=== PATIENT | female | born 1945 | race Caucasian/White ===

== ENCOUNTER 2020-01-18 11:05 | Emergency (ER) | payer MEDICARE, SELFPAY ==
--- NOTE | ~2020-01-18 | XR_ITS ---
EXAMINATION: XR chest 1V portable DATE: 01/18/2020 12:11 INDICATION: Chest pain TECHNIQUE: frontal view of the chest was obtained. COMPARISON: Chest radiograph dated 11/28/[address] dated 10/12/2017 FINDINGS: No interval change in a chronic right upper lobe hamartoma which demonstrates macroscopic fat attenua tion on CT. No new airspace opacities, pulmonary edema, pleural effusion or pneumothorax. The cardiom ediastinal silhouette is normal. Bilateral rotator cuff arthropathy with couple large loose osteochon dral bodies at the left axillary recess. IMPRESSION: 1. No acute cardiopulmonary disease. 2. 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 Reviewed, dictated and finalized at location A.
[2020-01-18 11:10] VITALS: BP 175/94; PULSE 94; RESP 20; TEMP 36.3; O2SAT 96
--- NOTE | 2020-01-18 11:18 | ECG_ITS ---
Measurements Intervals [place] Rate: 94 P: MI: 0 QRS: -28 QRSD: 149 T: 76 QT: 372 QTc: 465 Interpretive Statements SINUS RHYTHM LEFT BUNDLE BRANCH BLOCK ABNORMAL ECG Electronically Signed On 01-18-2020 11:27:00 CDT by Stephane Herrera D.O.
[2020-01-18 11:31] VITALS: PULSE 90
[2020-01-18 11:38] LABS: Basophils Percent Auto 0.6 % (0.2-1.2); Eosinophils Absolute Auto 0.3 K/mm3 (0-0.3); Eosinophils Percent Auto 3.6 % (0-4.4); Hematocrit 43.6 % (37.0-47.0); Hemoglobin 14.2 g/dL (12.0-15.0); Immature Granulocyte Absolute 0.03 K/mm3 (0.00-0.031); Immature Granulocyte Percent A 0.4 % (0-0.5); Lymphocytes Absolute Auto 1.44 K/mm3 (0.9-3.2); Mean Corpuscular HGB Conc 32.6 g/dl (32-36); Mean Corpuscular Hemoglobin 28.7 pg (26-34); Mean Corpuscular Volume 88.3 fl (80-100); Mean Platelet Volume 9.9 fl (7.4-10.4); Monocytes Absolute Auto 0.6 K/mm3 (0.1-0.6); Monocytes Percent Auto 8.7 % (2.6-8.5); Neutrophils Absolute Auto 4.8 K/mm3 (1.3-6.7); Neutrophils Percent Auto 66.7 % (45.5-73.1); Platelet Count Result 281 k/mm3 (150-375); Red Blood Count 4.94 M/mm3 (4.2-5.4); Red Cell Distribution Width 13.2 % (11.5-14.5); White Blood Count 7.2 K/mm3 (4.5-10.0)
--- NOTE | 2020-01-18 11:41 | ED.GENADULT ---
HPI - General Adult General Chief complaint: Chest Pain Stated complaint: chest pain and SOB Time Seen by Provider: 01/18/20 11:29 Source: patient Mode of arrival: ambulatory Limitations: no limitations History of Present Illness HPI narrative: Patient is a 74-year-old female who presents to emergency department for evaluation of midsternal chest heaviness for the last 2 days noting that she has had some congestion rhinorrhea ear discomfort attributed to allergies denies sick contacts. Patient denies vomiting diarrhea similar occurrence in the past aside from seasonal allergies. Patient took a baby aspirin this morning on arrival is resting comfortably in the room in no distress. Patient notes that heaviness worsens with deep breathing. Patient also notes associated dyspnea Related Data Home Medications Medication Instructions Recorded Confirmed albuterol sulfate [ProAir HFA] 1 puff INHALATION QID PRN 01/18/20 aspirin [Aspirin Childrens] 81 mg PO DAILY 01/18/20 bimatoprost [Lumigan] 1 drp LEFTEYE HS 01/18/20 budesonide-formoterol [Symbicort] 2 inh INHALATION BID 01/18/20 cetirizine [Zyrtec] 10 mg PO DAILY 01/18/20 donepezil mg 01/18/20 levothyroxine [Synthroid] 112 mcg PO DAILY 01/18/20 telmisartan-amlodipine tablet 01/18/20 Allergies Allergy/AdvReac Type Severity Reaction Status Date / Time clindamycin Allergy Unknown Hives Verified 01/18/20 11:22 denosumab Allergy Unknown loose Verified 01/18/20 11:22 teeth after one treatment mold Allergy Unknown Wheezing Verified 01/18/20 11:22 omeprazole Allergy Unknown abdominal Verified 01/18/20 11:22 cramping,diarrhea,bloating raloxifene Allergy Unknown contraindicated: Verified 01/18/20 11:22 DVT on ocp No Known Allergies Allergy Verified 01/18/20 11:22 Review of Systems Review of Systems: All systems reviewed & are unremarkable except as noted in HPI and below PMFSH Past Medical History Medical History (Updated 01/18/20 @ 15:43 by Zack Maurice PA-C) Hypertension Family History Family History (Updated 08/07/18 @ 13:46 by DOCTOR UNKNOWN) Father Diabetes mellitus Family history of congestive heart failure, Onset Age: 85 Family history of kidney disease Sibling Hypertension Family history of malignant neoplasm of breast, Onset Age: 73 Family history of malignant neoplasm of breast in first degree relative Mother Family history of Alzheimer's disease Other Asthma Family history of cardiovascular disease Family history of mental disorder Social History Social History Smoking status: Never smoker Alcohol intake: current Gender identity (if verbalized by the patient): Female Exam Narrative: Exam Narrative: GENERAL: Well-appearing, well-nourished, and in no acute distress. HEAD: Normocephalic, atraumatic. EYES: PERRLA and EOMI. ENT: Nares clear, no rhinorrhea or epistaxis. Mucous membranes moist. NECK: Supple. No adenopathy or masses. CHEST: Clear to auscultation. No respiratory distress. No wheezes rales or rhonchi HEART: Regular rate and rhythm. No murmur heard. Normal peripheral pulses. ABDOMEN: Soft, nontender, nondistended EXTREMITIES: Normal range of motion. No edema. SKIN: Warm, dry, no rash. NEURO: No focal deficits. Alert and oriented x3. PSYCH: Normal mood and affect. Course Course Emergency Course: Patient in the room at this time aware of case findings treatment plan and diagnosis agreeing to follow-up up with primary care for further evaluation resting comfortably in the room in no distress is aware of discussions with cardiology and primary care Consultations Consultation #1: Discussed case with primary care and cardiology Cardiology reviewed the case and notes that the patient can follow safely on an outpatient basis with primary care for further evaluation and referral if necessary Primary CARE awar
[2020-01-18 11:49] LABS: INR 0.9; Prothrombin Time 11.3 Seconds (11.1-14.7)
[2020-01-18 11:50] LABS: Partial Thromboplastin Time 27.5 SECONDS (22.3-36.8)
[2020-01-18 11:53] LABS: D Dimer 0.47 ug/mL (<0.48)
[2020-01-18] MEDS: ASPIRIN 81 MG CHEWABLE TABLET 324 MG PO (12:05)
[2020-01-18 12:06] VITALS: BP 157/91; PULSE 98; RESP 20; O2SAT 98
[2020-01-18 12:08] LABS: Blood Urea Nitrogen 13 mg/dL (7-17); Calcium 9.2 mg/dL (8.4-10.2); Carbon Dioxide 25 mmol/L (22-30); Chloride 101 mmol/L (98-107); Estimated CRCL calculation 49 ml/min; Estimated Glomerular Filt Rate > 60; Glucose 102 mg/dL (65-105); Potassium 4.1 mmol/L (3.4-5.0); Sodium 136 mmol/L (137-145)
[2020-01-18 12:20] LABS: Troponin I < 0.012 ng/mL (0.000-0.034)
[2020-01-18 12:21] LABS: NT Pro B Type Natriuretic Pept 280 PG/ML (5-100)
[2020-01-18 12:44] LABS: Alanine Aminotransferase 15 U/L (4-35); Albumin Level 4.7 g/dL (3.5-5.1); Alkaline Phosphatase 116 U/L (38-126); Aspartate Amino Transferase 25 U/L (14-36); Bilirubin,Total 0.5 mg/dL (0.2-1.3); Lipase 117 U/L (23-300)
[2020-01-18 13:42] VITALS: BP 147/78; PULSE 85; RESP 20; TEMP 36.7; O2SAT 97
[2020-01-18 14:59] LABS: Troponin I < 0.012 ng/mL (0.000-0.034)
[2020-01-18 15:55] VITALS: BP 124/80; PULSE 80; RESP 20; TEMP 36.7; O2SAT 99
== END 2020-01-18 15:56 | disposition home or self-care (01) ==
PROVIDERS: Emergency Medicine Emergency Medical Services; Emergency Provider Family Medicine; PCP Family Medicine
DX: R07.9 Chest pain, unspecified (principal); I10 Essential (primary) hypertension; Z79.82 Long term (current) use of aspirin; I44.7 Left bundle-branch block, unspecified; R06.00 Dyspnea, unspecified
CPT/HCPCS: 36415; 71045; 80053; 83690; 83880; 84484; 85025; 85380; 85610; 85730; 93005; 96365; 99284; A9270; J0131

== ENCOUNTER 2020-02-29 00:19 | Outpatient (CLI) | payer MEDICARE, SELFPAY ==
[2020-02-29 15:54] LABS: SARS-CoV-2 RNA PCR Negative
== END 2020-02-29 00:20 | disposition home or self-care (01) ==
LOC: ANHCOVIDDT 00:20
PROVIDERS: PCP Family Medicine; Visit Provider Specialist
DX: Z01.818 Encounter for other preprocedural examination (principal); Z11.59 Encounter for screening for other viral diseases
CPT/HCPCS: 87635; C9803; U0003

== ENCOUNTER 2020-03-03 05:17 | Day surgery (SDC) | payer MEDICARE, SELFPAY ==
[2020-02-29 13:27] VITALS: BMI 28.0
[2020-03-03] VITALS (15 sets, daily range): BP systolic 121–163; BP diastolic 62–91; PULSE 62–85; RESP 14–18; TEMP 36.8–37; O2SAT 92–97; BMI 31.1
[2020-03-03 09:08] LABS: Basophils Absolute Auto 0.1 K/mm3 (0.0-0.1); Basophils Percent Auto 0.7 % (0.2-1.2); Eosinophils Absolute Auto 0.3 K/mm3 (0-0.3); Eosinophils Percent Auto 4.7 % (0-4.4); Hematocrit 42.8 % (37.0-47.0); Immature Granulocyte Absolute 0.04 K/mm3 (0.00-0.031); Immature Granulocyte Percent A 0.6 % (0-0.5); Lymphocytes Absolute Auto 1.35 K/mm3 (0.9-3.2); Mean Corpuscular HGB Conc 32.7 g/dl (32-36); Mean Corpuscular Hemoglobin 28.9 pg (26-34); Mean Corpuscular Volume 88.2 fl (80-100); Monocytes Absolute Auto 0.7 K/mm3 (0.1-0.6); Monocytes Percent Auto 10.1 % (2.6-8.5); Neutrophils Absolute Auto 4.3 K/mm3 (1.3-6.7); Neutrophils Percent Auto 63.9 % (45.5-73.1); Platelet Count Result 295 k/mm3 (150-375); Red Blood Count 4.85 M/mm3 (4.2-5.4); Red Cell Distribution Width 13.3 % (11.5-14.5); White Blood Count 6.7 K/mm3 (4.5-10.0)
[2020-03-03 09:19] LABS: Blood Urea Nitrogen 17 mg/dL (7-17); Calcium 9.4 mg/dL (8.4-10.2); Carbon Dioxide 29 mmol/L (22-30); Chloride 104 mmol/L (98-107); Estimated CRCL calculation 50 ml/min; Estimated Glomerular Filt Rate > 60; Glucose 94 mg/dL (65-105); Potassium 4.2 mmol/L (3.4-5.0); Prothrombin Time 12.4 Seconds (11.1-14.7); Sodium 138 mmol/L (137-145)
--- NOTE | 2020-03-03 10:25 | WPDMODSED ---
Moderate Sedation Note-Pt Data Patient Data Diagnosis: Atypical chest pain left bundle-branch block abnormal nuclear stress test Present Complaint: 74-year-old patient with no previous documented history of coronary disease who has been having symptoms of atypical sounding chest pain. ECG demonstrates a left bundle branch block. Patient has pre-existing hypertension. Nuclear stress test demonstrated an anteroseptal defect that is fixed Procedure to be performed/Plan: left heart catheterization Allergies Allergy/AdvReac Type Severity Reaction Status Date / Time clindamycin Allergy Unknown Hives Verified 02/29/20 14:09 denosumab Allergy Unknown loose Verified 02/29/20 14:09 teeth after one treatment mold Allergy Unknown Wheezing Verified 02/29/20 14:09 omeprazole Allergy Unknown abdominal Verified 02/29/20 14:09 cramping,diarrhea,bloating raloxifene Allergy Unknown contraindicated: Verified 02/29/20 14:09 DVT on ocp Home Medications Medication Instructions Recorded Confirmed Type telmisartan 40 mg-amlodipine 5 mg 1 tablet PO DAILY #90 tablet 10/30/19 02/29/20 Rx tablet aspirin [Aspirin Childrens] 81 mg PO DAILY 01/18/20 03/03/20 History bimatoprost [Lumigan] 1 drp LEFTEYE HS 01/18/20 02/29/20 History budesonide-formoterol [Symbicort] 2 inh INHALATION BID 01/18/20 02/29/20 History cetirizine [Zyrtec] 10 mg PO DAILY 01/18/20 02/29/20 History donepezil [Aricept] 10 mg PO HS 01/18/20 02/29/20 History levothyroxine [Synthroid] 112 mcg PO DAILY 01/18/20 02/29/20 History albuterol sulfate 90 mcg/actuation 2 puff INHALATION QID PRN #18 gm 02/21/20 02/29/20 Rx aerosol inhaler Allergy (diphenhydramine) 25 mg BYMOUTH HS PRN 02/29/20 02/29/20 History calcium carbonate-vitamin D3 1 tablet PO DAILY 02/29/20 02/29/20 History [Caltrate with Vitamin D3] cholecalciferol (vitamin D3) 50 mcg PO DAILY 02/29/20 02/29/20 History cyanocobalamin (vitamin B-12) 1,000 mcg PO DAILY 02/29/20 02/29/20 History fluticasone propionate [Flonase 2 spray INTRANASAL DAILY 02/29/20 02/29/20 History Allergy Relief] vitamin E 400 unit PO DAILY 02/29/20 02/29/20 History Current Medications: Active Medications Sodium Chloride (Normal Saline Iv) 500 mls @ 100 mls/hr IV CONT .Q5H TAMARA Sedation/Anesthesia: No previous sedation/anesthesia problems (including family history). [facility] Past Medical History Medical History (Updated 01/29/20 @ 15:36 by Zarina Gupta MD) Hypertension Lung nodule COMPARISON: Chest radiograph dated 11/28/[address] dated 10/12/2017 IMPRESSION: 1. No acute cardiopulmonary disease. 2. 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 Family History Family History (Updated 08/07/18 @ 13:46 by DOCTOR UNKNOWN) Father Diabetes mellitus Family history of congestive heart failure, Onset Age: 85 Family history of kidney disease Sibling Hypertension Family history of malignant neoplasm of breast, Onset Age: 73 Family history of malignant neoplasm of breast in first degree relative Mother Family history of Alzheimer's disease Other Asthma Family history of cardiovascular disease Family history of mental disorder Social History Social History Smoking status: Never smoker Alcohol intake: current Gender identity (if verbalized by the patient): Female Mod Sed Physical Exam Physical Exam Pre Procedural Exam: Normal: Appearance, Nose, Neck, Throat, Airway, Lungs, Heart Size, Heart Rate, Heart Rhythm, Neuro Exam and Extremities Hours since solid foods: 12 Hours since liquid intake: 12 Internal Medicine - PN: Obj Da Vital Signs Vital Signs: Vital Signs - 24 hr 03/03/20 09:00 Temperature 36.8 C Pulse Rate 78 Respiratory Rate 16 Blood Pressure 163/83 H Pulse Oximetry 96 Intake/Output Intake/Output: Intake & Output 02/29/20 03/01/20 03/02/20 03/03/20 23:59 2
--- NOTE | 2020-03-03 10:50 | WPDCARDPROC ---
Cardiac Cath Procedure Note Date of procedure:: 03/03/20 Performing physician:: Mal Riggs MD Indication:: atypical chest pain, abnormal nuclear stress test, left bundle-branch block Brief clinical history:: this is a 74-year-old woman who was reporting as syndrome of chest pain and MANZANO that is atypical of angina. She has been found to have a left bundle branch block and a nuclear stress test was done demonstrating a fixed anteroseptal / anteroapical defect. For further evaluation of this and angiogram was been recommended Procedure Procedure performed:: left heart catheterization with left ventriculography and coronary angiography. Sedation/Medication given:: Fentanyl 50 mg Versed 2 mg case start time 10:37 a.m. case end time 10:48 a.m. sedation provided by Jacob Zimmerman RN , trained observer Access site:: right femoral Estimated blood loss:: 15-20 cc Procedure note:: patient was brought to the cardiac catheterization lab in the postabsorptive state the right was prepared usual fashion anesthesia was provided with 1% lidocaine infiltrated locally. Using the modified Seldinger technique a 5 Bengali vascular sheath was placed into the femoral artery after this left heart catheterization was performed. A 5 Bengali angled pigtail catheter was used to document left-sided hemodynamics and to injected LV g in the are AO projection. Following this I used standard 5 Bengali FL4 and JR4 catheters to inject the left and right coronary arteries in multiple projections. This any angiograms were then reviewed and the case was terminated. An angiogram was done of the femoral artery through the sheath after which I determined to remove the sheath with direct manual compression. He left the clinical lab assistant with no evidence of a groin hematoma there were no other apparent procedural complications. Findings:: Hemodynamics: Central aortic pressure is 153/72 left ventricle 153/0 end-diastolic pressure 11 there is no systolic gradient upon pullback across the aortic valve. The left ventricle is normal in size all segments contract appropriately the septum moves in a paradoxical fashion the ejection fraction is visually estimated to be 55% the left main coronary artery is widely patent the LAD is a large caliber vessel extending down to around the apex. The LAD as well as its diagonal and septal branches are angiographically normal. The circumflex is a large caliber artery appears to be codominant. The circumflex, its marginal branches and posterior branches are angiographically normal. Right coronary is a medium caliber vessel which is codominant terminating in RPDA. The right coronary is rather tortuous but angiographically free of disease Conclusion:: codominant circulation with no evidence of coronary artery disease preserved left ventricular systolic function current symptoms are not related to ischemia based on these findings Mal Riggs MD [facility]
== END 2020-03-03 18:10 | disposition home or self-care (01) ==
PROVIDERS: PCP Family Medicine; Visit Provider Specialist
PROC: 4A023N7 Measurement of Cardiac Sampling and Pressure, Left Heart, Percutaneous Approach (ICD-10-PCS; CPT 93452; principal; 2020-03-03 10:00)
DX: R94.39 Abnormal result of other cardiovascular function study (principal); R07.89 Other chest pain; I44.7 Left bundle-branch block, unspecified; I10 Essential (primary) hypertension; R91.1 Solitary pulmonary nodule; J44.9 Chronic obstructive pulmonary disease, unspecified; E78.5 Hyperlipidemia, unspecified; I73.9 Peripheral vascular disease, unspecified; E07.9 Disorder of thyroid, unspecified; Z79.82 Long term (current) use of aspirin
CPT/HCPCS: 36415; 80048; 85025; 85610; 93458; C1887; C1894; J1644; J2250; J3010; J7040

== ENCOUNTER 2020-05-28 09:46 | Emergency (ER) | payer MEDICARE, SELFPAY ==
[2020-05-28] VITALS (36 sets, daily range): BP systolic 133–184; BP diastolic 63–109; PULSE 57–85; RESP 13–24; TEMP 36.8; O2SAT 91–99
--- NOTE | ~2020-05-28 | CT_ITS ---
EXAMINATION: CT brain wo con DATE: 05/28/2020 10:22 INDICATION: Numbness. TECHNIQUE: Computed tomography (CT) of the head was performed without intravenous contrast. The mA wa s adjusted according to patient size. Iterative reconstruction technique was employed. The dose-lengt h product was 605.33 mGy-cm. COMPARISON: PET/CT 08/04/2016 FINDINGS: There are scattered areas of low attenuation in the cerebral white matter. There is no intr acranial hemorrhage, acute infarction, or abnormal intracranial mass lesion. The ventricles are maurizio l in size. There are likely changes of ocular lens replacement surgeries. There is mucosal thickening in the paranasal sinuses with thickening and sclerosis of the sinus larry, consistent with chronic s inusitis. There is a trace right mastoid effusion. IMPRESSION: 1. Moderate nonspecific cerebral white matter disease, which likely represents chronic small vessel i schemic disease. 2. Chronic sinusitis. Reviewed, dictated and finalized at location A. IMPRESSION: 1. Moderate nonspecific cerebral white matter disease, which likely represents chronic small vessel ischemic disease. 2. Chronic sinusitis.
--- NOTE | ~2020-05-28 | XR_ITS ---
EXAMINATION: XR chest 2V DATE: 05/28/2020 10:24 INDICATION: Shortness of breath. TECHNIQUE: Frontal and lateral views of the chest were obtained. COMPARISON: Chest single view 01/18/2020, chest CT 10/12/2017, PET/CT 08/04/16 FINDINGS: There is mild atelectasis at the lung bases. There is a chronic nodule in right upper lobe, consistent with a hematoma. No pleural effusion or pneumothorax. The heart size is normal. There is mild chronic anterior wedging of a midthoracic vertebral body. IMPRESSION: 1. Mild atelectasis at the lung bases. 2. Chronic nodule in right upper lobe, consistent with a hamartoma. Reviewed, dictated and finalized at location A.
--- NOTE | 2020-05-28 09:55 | ECG_ITS ---
Measurements Intervals [place] Rate: 68 P: 46 OR: 176 QRS: -16 QRSD: 142 T: 76 QT: 412 QTc: 439 Interpretive Statements SINUS RHYTHM LEFT BUNDLE BRANCH BLOCK ABNORMAL ECG Electronically Signed On 05-28-2020 10:03:48 CDT by Stephane Herrera D.O.
--- NOTE | 2020-05-28 10:04 | ED.GENADULT ---
HPI - General Adult General Chief complaint: Arrhythmia/Palpitations Stated complaint: Numbness at night x2 wks Time Seen by Provider: 05/28/20 09:51 Source: RN notes reviewed History of Present Illness HPI narrative: Patient presents emergency department from home for multiple complaints. Patient states that for the past 2 weeks she will wake up at night with intermittent diaphoresis numbness and tingling in different extremities chest pain and shortness of breath. All the symptoms do not occur at the same time but have been different times and the numbness and tingling is not always in the same extremities but can be bilateral or no single extremity. She states that there is no symptoms during the day she denies any fevers or chills abdominal pain nausea vomiting or any other symptoms. Currently her only symptom is that she notes mild tingling in the bilateral upper extremities but denies any other symptoms at this time Related Data Home Medications Medication Instructions Recorded Confirmed Miguel Arnie domingo MILAN HS 01/18/20 05/07/20 Zyrtec 10 mg PO DAILY 01/18/20 05/07/20 budesonide-formoterol [Symbicort] 2 inh INHALATION BID 01/18/20 05/07/20 donepezil [Aricept] 10 mg PO HS 01/18/20 05/07/20 levothyroxine [Synthroid] 112 mcg PO DAILY 01/18/20 05/07/20 cholecalciferol (vitamin D3) 50 mcg PO DAILY 02/29/20 05/07/20 cyanocobalamin (vitamin B-12) 1,000 mcg PO DAILY 02/29/20 05/07/20 fluticasone propionate [Flonase 2 spray INTRANASAL DAILY 02/29/20 05/07/20 Allergy Relief] vitamin E 400 unit PO DAILY 02/29/20 05/07/20 carvedilol 3.125 mg tablet 3.125 mg PO BID tablet 05/07/20 05/07/20 aspirin [Adult Low Dose Aspirin] 81 mg PO DAILY 05/28/20 Allergies Allergy/AdvReac Type Severity Reaction Status Date / Time clindamycin Allergy Unknown Hives Verified 02/29/20 14:09 denosumab Allergy Unknown loose Verified 02/29/20 14:09 teeth after one treatment mold Allergy Unknown Wheezing Verified 02/29/20 14:09 omeprazole Allergy Unknown abdominal Verified 02/29/20 14:09 cramping,diarrhea,bloating raloxifene Allergy Unknown contraindicated: Verified 02/29/20 14:09 DVT on ocp Review of Systems Review of Systems: Narrative: Gen.: Denies fevers or chills Eyes: Denies eye pain or visual change ENT: Denies congestion Respiratory: Reports intermittent shortness of breath CV: Reports intermittent chest pain GI: Denies abdominal pain nausea, emesis or diarrhea Musculoskeletal: Denies back pain or muscle pain Neuro: See HPI Skin: Denies rash Except as documented, all other systems reviewed and negative [facility] Past Medical History Medical History Hypertension Lung nodule COMPARISON: Chest radiograph dated 11/28/[address] dated 10/12/2017 IMPRESSION: 1. No acute cardiopulmonary disease. 2. 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 Surgical History Surgical History (Updated 03/04/20 @ 10:19 by Zarina Gupta MD) Status post cardiac catheterization 6.8.20 codominant circulation with no evidence of coronary artery disease. preserved left ventricular systolic function Family History Family History (Updated 08/07/18 @ 13:46 by DOCTOR UNKNOWN) Father Diabetes mellitus Family history of congestive heart failure, Onset Age: 85 Family history of kidney disease Sibling Hypertension Family history of malignant neoplasm of breast, Onset Age: 73 Family history of malignant neoplasm of breast in first degree relative Mother Family history of Alzheimer's disease Other Asthma Family history of cardiovascular disease Family history of mental disorder Social History Social History Smoking status: Never smoker Alcohol intake: current Gender identity (if verbalized by the patient): Female Exam Narrative: Exam Narrative: APPEAR
[2020-05-28 10:29] LABS: Basophils Absolute Auto 0.1 K/mm3 (0.0-0.1); Basophils Percent Auto 0.8 % (0.2-1.2); Eosinophils Absolute Auto 0.3 K/mm3 (0-0.3); Eosinophils Percent Auto 5.3 % (0-4.4); Hematocrit 42.5 % (37.0-47.0); Hemoglobin 14.1 g/dL (12.0-15.0); Immature Granulocyte Absolute 0.03 K/mm3 (0.00-0.031); Immature Granulocyte Percent A 0.5 % (0-0.5); Lymphocytes Absolute Auto 1.49 K/mm3 (0.9-3.2); Lymphocytes Percent Auto 24.1 % (18.3-44.2); Mean Corpuscular HGB Conc 33.2 g/dl (32-36); Mean Corpuscular Volume 87.3 fl (80-100); Mean Platelet Volume 10.1 fl (7.4-10.4); Monocytes Absolute Auto 0.6 K/mm3 (0.1-0.6); Monocytes Percent Auto 9.2 % (2.6-8.5); Neutrophils Absolute Auto 3.7 K/mm3 (1.3-6.7); Neutrophils Percent Auto 60.1 % (45.5-73.1); Platelet Count Result 298 k/mm3 (150-375); Red Blood Count 4.87 M/mm3 (4.2-5.4); Red Cell Distribution Width 13.1 % (11.5-14.5); White Blood Count 6.2 K/mm3 (4.5-10.0)
[2020-05-28 10:39] LABS: Partial Thromboplastin Time 28.9 SECONDS (22.3-36.8); Prothrombin Time 12.4 Seconds (11.1-14.7)
[2020-05-28 10:43] LABS: Alanine Aminotransferase 15 U/L (4-35); Albumin Level 4.4 g/dL (3.5-5.1); Alkaline Phosphatase 106 U/L (38-126); Anion Gap 8 mmol/L (8-16); Aspartate Amino Transferase 25 U/L (14-36); Bilirubin,Total 0.4 mg/dL (0.2-1.3); Blood Urea Nitrogen 13 mg/dL (7-17); Carbon Dioxide 27 mmol/L (22-30); Chloride 103 mmol/L (98-107); Estimated CRCL calculation 49 ml/min; Estimated Glomerular Filt Rate > 60; Glucose 87 mg/dL (65-105); Magnesium 2.1 mg/dL (1.6-2.3); Potassium 4.2 mmol/L (3.4-5.0); Sodium 138 mmol/L (137-145)
[2020-05-28 10:52] LABS: Troponin I < 0.012 ng/mL (0.000-0.034)
[2020-05-28 14:35] LABS: Troponin I < 0.012 ng/mL (0.000-0.034)
== END 2020-05-28 15:49 | disposition home or self-care (01) ==
PROVIDERS: Emergency Provider Emergency Medicine; PCP Family Medicine
DX: R20.2 Paresthesia of skin (principal); R07.9 Chest pain, unspecified; I10 Essential (primary) hypertension; Z79.82 Long term (current) use of aspirin; I44.7 Left bundle-branch block, unspecified
CPT/HCPCS: 36415; 70450; 71046; 80053; 83735; 84484; 85025; 85610; 85730; 93005; 99284

== ENCOUNTER 2020-06-06 00:16 | Outpatient (CLI) | payer MEDICARE, SELFPAY ==
[2020-06-07 13:40] LABS: SARS-CoV-2 RNA PCR Negative
== END 2020-06-06 00:17 | disposition home or self-care (01) ==
LOC: ANHCOVIDDT 00:16
PROVIDERS: PCP Family Medicine; Visit Provider Internal Medicine Gastroenterology
DX: Z01.812 Encounter for preprocedural laboratory examination (principal); Z20.828 Contact with and (suspected) exposure to other viral communicable diseases
CPT/HCPCS: 87635; C9803; U0003

== ENCOUNTER 2020-06-09 01:34 | Day surgery (SDC) | payer MEDICARE, SELFPAY ==
[2020-06-04 10:23] VITALS: BMI 27.3
--- NOTE | 2020-06-09 09:28 | WPDGICN ---
Assessment and Plan Assessment and plan (1) Atypical chest pain: Code(s): R07.89 - Other chest pain Status: Acute Assessment and Plan: Patient with very atypical symptoms at night that include some chest discomfort but also numbness tingling in her hands and fingers is uncertain if this represents acid reflux. She has improved upon being started on sucralfate period is uncertain if the this is incidental or not. Plan is for EGD to assess more thoroughly. Further recommendations will be given after endoscopy. (2) Malignant neoplasm of thyroid gland: Code(s): C73 - Malignant neoplasm of thyroid gland Status: Acute GI Consult Note Consult date/time: 06/09/20 09:28 HPI: Stephanie Holly is a 75 year old female seen in evaluation at the request of Dr Zarina Gupta.Patient complains of nocturnal episodes where she becomes short of breath her fingers become numb and tingling she has no bitter taste in her mouth. No regurgitation. She apparently was treated with sucralfate. She is uncertain if this has made any benefit. She states that in the doctor's office she had epigastric pain that is no longer present today. Patient denies any weight loss or bleeding. Previously she took Pepcid but now only Carafate. Review of Systems Review of Systems: All systems reviewed & are unremarkable except as noted in HPI and below PMFSH Past Medical History Medical History Hypertension Lung nodule COMPARISON: Chest radiograph dated 11/28/[address] dated 10/12/2017 IMPRESSION: 1. No acute cardiopulmonary disease. 2. 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 Surgical History Surgical History Status post cardiac catheterization 6.8.20 codominant circulation with no evidence of coronary artery disease. preserved left ventricular systolic function Family History Family History Father Diabetes mellitus Family history of congestive heart failure, Onset Age: 85 Family history of kidney disease Sibling Hypertension Family history of malignant neoplasm of breast, Onset Age: 73 Family history of malignant neoplasm of breast in first degree relative Mother Family history of Alzheimer's disease Other Asthma Family history of cardiovascular disease Family history of mental disorder Social History Social History Smoking status: Never smoker Alcohol intake: current Substance use: never Substance use type: does not use Living arrangements: alone Gender identity (if verbalized by the patient): Female Spiritual care concerns: No Meds Home Medications and Allergies Home Medications Medication Instructions Recorded Confirmed Type Lumigan 1 drp OPHTHALMIC (EYE) HS 01/18/20 06/09/20 History Zyrtec 10 mg PO DAILY 01/18/20 06/09/20 History budesonide-formoterol [Symbicort] 2 inh INHALATION BID 01/18/20 06/09/20 History donepezil [Aricept] 10 mg PO BID 01/18/20 06/09/20 History albuterol sulfate 90 mcg/actuation 2 puff INHALATION QID PRN #18 gm 02/21/20 06/04/20 Rx aerosol inhaler cholecalciferol (vitamin D3) 50 mcg PO DAILY 02/29/20 06/09/20 History cyanocobalamin (vitamin B-12) 1,000 mcg PO DAILY 02/29/20 06/09/20 History fluticasone propionate [Flonase 2 spray INTRANASAL DAILY 02/29/20 06/04/20 History Allergy Relief] vitamin E 400 unit PO DAILY 02/29/20 06/09/20 History telmisartan 40 mg-amlodipine 5 mg 1 tablet PO DAILY #90 tablet 05/01/20 06/09/20 Rx tablet carvedilol 3.125 mg tablet 3.125 mg PO BID tablet 05/07/20 06/09/20 History aspirin [Adult Low Dose Aspirin] 81 mg PO DAILY 05/28/20 06/09/20 History sucralfate [Carafate] 1 gm PO .meals #20 tablet 05/28/20 06/09/20 Rx levothyroxine 125 mcg tablet 125 mcg PO DAILY
[2020-06-09 09:29] VITALS: BP 149/80; PULSE 72; RESP 18; TEMP 36; O2SAT 95; BMI 28.2
[2020-06-09] MEDS: LACTATED RINGERS 1,000 ML 150 ML IV CONT (09:34)
--- NOTE | 2020-06-09 09:48 | WPDANESEPPF ---
Anes - Initial Pre Proc Eval Procedure: Operation Date: 06/09/20 09:30 Proposed Procedures p Esophagogastroduodenoscopy - Ghassan French MD Date/Time: 06/09/20 09:48 Surgeon: Ghassan French MD Pre Op Diagnosis: GERD Patient Data Age: 75 Gender: F Height: 5 ft 3 in Weight: 72.3 kg Last Vital Signs Temp 96.8 F L 06/09/20 09:29 Pulse 72 06/09/20 09:29 Resp 18 06/09/20 09:29 BP 149/80 H 06/09/20 09:29 Pulse Ox 95 06/09/20 09:29 Allergies Allergy/AdvReac Type Severity Reaction Status Date / Time clindamycin Allergy Unknown Hives Verified 06/09/20 09:10 denosumab Allergy Unknown loose Verified 06/09/20 09:10 teeth after one treatment mold Allergy Unknown Wheezing Verified 06/09/20 09:10 omeprazole Allergy Unknown abdominal Verified 06/09/20 09:10 cramping,diarrhea,bloating raloxifene Allergy Unknown contraindicated: Verified 06/09/20 09:10 DVT on ocp Home Medications Medication Instructions Recorded Confirmed Type Lumigan 1 drp OPHTHALMIC (EYE) HS 01/18/20 06/09/20 History Zyrtec 10 mg PO DAILY 01/18/20 06/09/20 History budesonide-formoterol [Symbicort] 2 inh INHALATION BID 01/18/20 06/09/20 History donepezil [Aricept] 10 mg PO BID 01/18/20 06/09/20 History albuterol sulfate 90 mcg/actuation 2 puff INHALATION QID PRN #18 gm 02/21/20 06/04/20 Rx aerosol inhaler cholecalciferol (vitamin D3) 50 mcg PO DAILY 02/29/20 06/09/20 History cyanocobalamin (vitamin B-12) 1,000 mcg PO DAILY 02/29/20 06/09/20 History fluticasone propionate [Flonase 2 spray INTRANASAL DAILY 02/29/20 06/04/20 History Allergy Relief] vitamin E 400 unit PO DAILY 02/29/20 06/09/20 History telmisartan 40 mg-amlodipine 5 mg 1 tablet PO DAILY #90 tablet 05/01/20 06/09/20 Rx tablet carvedilol 3.125 mg tablet 3.125 mg PO BID tablet 05/07/20 06/09/20 History aspirin [Adult Low Dose Aspirin] 81 mg PO DAILY 05/28/20 06/09/20 History sucralfate [Carafate] 1 gm PO .meals #20 tablet 05/28/20 06/09/20 Rx levothyroxine 125 mcg tablet 125 mcg PO DAILY #90 tablet 06/04/20 06/09/20 Rx Patient hx anesthesia problems: none Family hx anesthesia problems: none PMFSH Past Medical History Medical History (Updated 06/09/20 @ 09:48 by Niels Alvarez MD) Anxiety Asthma Deep vein thrombophlebitis of leg Essential (primary) hypertension Hypertension Hypothyroidism (acquired) Lung nodule COMPARISON: Chest radiograph dated 11/28/[address] dated 10/12/2017 IMPRESSION: 1. No acute cardiopulmonary disease. 2. 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 Surgical History Surgical History Status post cardiac catheterization 6.8.20 codominant circulation with no evidence of coronary artery disease. preserved left ventricular systolic function Family History Family History Father Diabetes mellitus Family history of congestive heart failure, Onset Age: 85 Family history of kidney disease Sibling Hypertension Family history of malignant neoplasm of breast, Onset Age: 73 Family history of malignant neoplasm of breast in first degree relative Mother Family history of Alzheimer's disease Other Asthma Family history of cardiovascular disease Family history of mental disorder Social History Social History Smoking status: Never smoker Alcohol intake: current Substance use: never Substance use type: does not use Living arrangements: alone Gender identity (if verbalized by the patient): Female Spiritual care concerns: No Anes - Eval Final PreProcedure Day of Procedure 06/09/20 09:48 Patient weight: normal Heart: regular rate and rhythm Lungs: clear to auscultation Airway: Mallampati scale class II Neurological: alert and oriented Last oral intake: >/= 8 hours ASA classif
[2020-06-09 10:19] VITALS: BP 102/63; PULSE 65; RESP 27; O2SAT 96
[2020-06-09 10:29] VITALS: BP 132/79; PULSE 63; RESP 22; O2SAT 94
[2020-06-09 10:39] VITALS: BP 147/74; PULSE 66; RESP 22; O2SAT 98
== END 2020-06-09 10:48 | disposition home or self-care (01) ==
PROVIDERS: PCP Family Medicine; Visit Provider Internal Medicine Gastroenterology
PROC: 0DJ08ZZ Inspection of Upper Intestinal Tract, Via Natural or Artificial Opening Endoscopic (ICD-10-PCS; CPT 43235; principal; 2020-06-09 09:30)
DX: K29.60 Other gastritis without bleeding (principal); I10 Essential (primary) hypertension; E03.9 Hypothyroidism, unspecified; J45.909 Unspecified asthma, uncomplicated; R91.1 Solitary pulmonary nodule; F41.9 Anxiety disorder, unspecified
CPT/HCPCS: 43239; 87081; J2704; J7120

== ENCOUNTER 2020-06-13 14:40 | Outpatient (CLI) | payer MEDICARE, SELFPAY ==
--- NOTE | ~2020-06-13 | MR_ITS ---
EXAMINATION: MR cervical spine wo con DATE: 06/13/2020 15:43 INDICATION: Upper and lower extremity tingling and numbness. Neck pain. TECHNIQUE: Magnetic resonance imaging (MRI) of the cervical spine was performed without intravenous c ontrast. Sequences included sagittal T2-weighted FSE, sagittal T2-weighted FS FSE, sagittal T1-weight ed FSE, axial MERGE, and axial T2-weighted FSE. COMPARISON: Cervical spine MRI 11/28/2015 FINDINGS: There is 5 mm levoscoliosis of cervical spine. There is 2 mm anterolisthesis of C4 on C5. T here is mild chronic anterior wedging of T4 and T5 vertebral bodies. There is a hemangioma in C3 vert ebral body. There is mildly decreased disc height at C4-C5 and severely decreased disc height at C5-C 6 and C6-C7. The spinal cord signal intensity is normal. The following disc levels are specifically d iscussed: C2-C3: The disc does not extend beyond the endplate margin. There is no uncovertebral joint osteoarth ritis. There is severe bilateral facet joint osteoarthritis. There is mild right neural foraminal shadia nosis. There is no central canal stenosis. C3-C4: The disc does not extend beyond the endplate margin. There is no uncovertebral joint osteoarth ritis. There is moderate right and severe left facet joint osteoarthritis. There is mild left neural foraminal stenosis. There is no central canal stenosis. C4-C5: The disc does not extend beyond the endplate margin. There is mild bilateral uncovertebral bogdan nt osteoarthritis. There is severe bilateral facet joint osteoarthritis. There is mild left neural fo raminal stenosis. There is no central canal stenosis. C5-C6: The disc is bulging. There is severe bilateral uncovertebral joint osteoarthritis. There is se anh bilateral facet joint osteoarthritis. There is moderate bilateral neural foraminal stenosis. The re is mild central canal stenosis. C6-C7: The disc is bulging. There is severe bilateral uncovertebral joint osteoarthritis. There is se anh bilateral facet joint osteoarthritis. There is moderate bilateral neural foraminal stenosis. The re is mild central canal stenosis. C7-T1: The disc does not extend beyond the endplate margins. There is no uncovertebral joint osteoart hritis. There is moderate right and mild left facet joint osteoarthritis. There is no neural foramina l stenosis. There is no central canal stenosis. IMPRESSION: 1. Severe cervical spondylosis, stable from 11/28/2015. Reviewed, dictated and finalized at location A.
== END 2020-06-13 14:41 | disposition home or self-care (01) ==
PROVIDERS: PCP Family Medicine; Visit Provider Family Medicine
DX: R20.9 Unspecified disturbances of skin sensation (principal); M47.812 Spondylosis without myelopathy or radiculopathy, cervical region
CPT/HCPCS: 72141

== ENCOUNTER 2020-06-23 10:45 | Outpatient (CLI) | payer MEDICARE, SELFPAY ==
--- NOTE | ~2020-06-23 | CT_ITS ---
EXAMINATION: CTA brain carotid EXAM DATE: 06/23/2020 12:49 INDICATION: Transient ischemic attack. Numbness. TECHNIQUE: Noncontrast head CT. Spiral CTA of the carotid arteries was performed with intravenous i njection 100 cc of Omnipaque 350. Axial, coronal, sagittal reformatted images reviewed. Additional r eformatted images created on dedicated 3-D workstation. NASCET comparable standard used to assess th e degree of arterial stenosis. Spiral CT angiogram cerebral arteries performed with the same intrave nous injection of contrast. Source images of the brain CTA transferred to dedicated workstation for 3 -D rotational image creation. Coronal, sagittal maximum intensity pixel images also reviewed. The d ose-length product (DLP) for this examination was 1466.49 mGy-cm. The exposure was tailored accordi ng to patient size, and iterative reconstruction (ASIR) was used as additional dose reduction techniq ue. Correlation made to head CT 05/28/2020 FINDINGS: Mild bilateral carotid bulb arterial sclerosis with 0% stenosis bilaterally. Vertebral dilip carmelo are codominant. There is no carotid or vertebral basilar arterial dissection or fibromuscular d ysplasia. There are no cerebral artery aneurysms. There is symmetric cerebral artery arborization. Th e sagittal, transverse and sigmoid sinuses enhance normally, no venous sinus thrombosis. Internal cer ebral veins also enhance normally. There is no acute intraparenchymal hemorrhage. No evidence of intraparenchymal brain mass lesion. N o evidence of acute infarction. There is moderate periventricular and subcortical hypodensity, nonspe cific but probably related to small vessel ischemic disease. There is mild prominence of the sulci and ventricles related to cerebral atrophy. There is intracranial carotid arteriosclerosis. There is no mass effect or midline shift. There is no obstructive hydrocephalus suspected. There are no e xtra-axial collections. There are no calvarial acute fractures. Maxillary sinus wall thickening fro m chronic mucoperiosteal thickening. There is ethmoid and maxillary sinus mucoperiosteal thickening o n this exam, right maxillary and frontoethmoid most affected. Bilateral cataract surgery. Right upper lobe 1.4 cm nodule has been previously worked up, is unchanged compared to 2016, probably hamartoma. IMPRESSION: 1. Mild carotid bulb arterial sclerosis, 0% stenosis bilaterally. 2. Mucoperiosteal thickening, maxillary wall thickening, evidence of chronic sinusitis. Reviewed, dictated and finalized at location A. IMPRESSION: 1. Mild carotid bulb arterial sclerosis, 0% stenosis bilaterally. 2. Mucoperiosteal thickening, maxillary wall thickening, evidence of chronic s inusitis.
--- NOTE | 2020-06-24 10:58 | WPDNEUROLOGY ---
Neurology EEG Report General Information Date of Study: 06/23/20 TEST EEG DIAGNOSIS TIA CONDITION OF RECORDING Awake drowsy and sleep EEG NUMBER [id number] CLINICAL HISTORY patient reported that for the last several months different parts of his body will become numb while he is sleeping. It wakes her up and can last for few minutes up to a couple of hours. EEG DESCRIPTION basic resting occipital frequency consist of very minimal amount of poorly organized alpha admixed with a large amount of low-voltage bilateral beta activity during drowsiness low-voltage beta activity seen diffusely. Bilateral symmetrical sleep spindles are seen during sleep intermittent 5 to 7 hertz per 2nd theta burst are seen. Non paroxysmal nonfocal nonlateralizing IMPRESSION no significant abnormalities noted
== END 2020-06-23 10:46 | disposition home or self-care (01) ==
LOC: ANHNEURO 10:47
PROVIDERS: PCP Family Medicine; Visit Provider Psychiatry & Neurology Neurology
DX: G45.9 Transient cerebral ischemic attack, unspecified (principal)
CPT/HCPCS: 70496; 70498; 95816; Q9967

== ENCOUNTER 2020-07-04 02:37 | Outpatient (CLI) | payer MEDICARE, SELFPAY ==
[2020-07-04 23:12] LABS: SARS-CoV-2 RNA PCR Negative
== END 2020-07-04 02:38 | disposition home or self-care (01) ==
LOC: ANHCOVIDDT 02:37
PROVIDERS: PCP Family Medicine; Visit Provider Internal Medicine Critical Care Medicine
DX: Z01.812 Encounter for preprocedural laboratory examination (principal); Z20.828 Contact with and (suspected) exposure to other viral communicable diseases
CPT/HCPCS: 87635; C9803; U0003

== ENCOUNTER 2020-07-07 07:24 | Outpatient (CLI) | payer MEDICARE, SELFPAY ==
--- NOTE | 2020-08-01 14:11 | WPDSLEEPSTUD ---
Sleep Study Date of Study: 07/07/20 Ordering Provider: Torsten Lowe MD Interpreting Physician: Jory Riggins MD Sleep Study Type: Polysomnogram Height: 1.61 m Weight: 70.76 kg Body Mass Index: 27.1 Neck Circumference: 39.37 cm [place]: 2 Reason for Sleep Study hypersomnia, feeling numb at night in her arms and legs Sleep History Stephanie Holly is a 75 yo female with a history of 2 months of waking up during the night with tingling in her arms and legs. She has been waking up 5-6 times at night with these symptoms. Sometimes she has numbness throughout her body. On 1 evening she had 2-1/2 hours of numbness. This also happened in her face and head. She has seen a neurologist. She constantly snores according to her daughter. She does not awaken at night with heartburn, belching or coughing. She rarely awakens from sleep feeling short of breath. She occasionally has trouble sleeping when she has a cold. She occasionally wakes up gasping for breath at night. She really has breathing problems at night observed by others. She really sweats excessively at night or notices her heart pounding or beating irregularly at night. She rarely falls asleep during the day, never involuntarily and never while driving. She does not fall asleep during physical effort. She does not have loss of muscle tone was strong emotion, rarely has daytime difficulties due to excessive sleepiness. She really feels paralyzed on waking or falling asleep. She does not have vivid dreamlike scenes upon awakening or falling asleep. She is really afraid to go to sleep. She does not have nightmares. She really remembers her dreams, rarely has racing thoughts, really feel sad depressed or anxious. She rarely has muscular tension. She does not notice parts of her body jerking. She rarely kicks at night, rarely has crawling and aching feelings in her legs, rarely has leg pain at night and really has morning jaw pain. She rarely grinds her teeth at night. She rarely is bothered by pain during the day, occasionally is awakened by pain at night. She rarely wakes up feeling stiff in the morning, occasionally wakes up with sore or achy muscles occasionally wakes up with pain in the neck and spine. She has fatigue and concentration difficulties. Normal bedtime is 11:00 p.m. taking 30 minutes fall asleep typically waking 4 times at night. This does very and sometime she is awake for 3-4 hours. While awake she will go to the bathroom. She also watches television if she wakes up. She wakes in the morning at 7:00 a.m.. She does not take naps. Most of the time she feels adequate in the morning. She feels better in the afternoon. Habits: Never smoked tobacco. Three cups of decaffeinated coffee. No alcohol or recreational drugs. [facility] Past Medical History Medical History (Updated 08/01/20 @ 14:55 by Jory Riggins MD) Anxiety Asthma Deep vein thrombophlebitis of leg Essential (primary) hypertension Hypertension Hypothyroidism (acquired) Lung nodule COMPARISON: Chest radiograph dated 11/28/[address] dated 10/12/2017 IMPRESSION: 1. No acute cardiopulmonary disease. 2. 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 Nocturnal hypoxemia Surgical History Surgical History Status post cardiac catheterization 6.8.20 codominant circulation with no evidence of coronary artery disease. preserved left ventricular systolic function Family History Family History Father Diabetes mellitus Family history of congestive heart failure, Onset Age: 85 Family history of kidney disease Sibling Hypertension Family history of malignant neoplasm of breast, Onset Age: 73 Family history of malignant neoplasm of breast in first degree relative Mother Family history of Alzheimer's disease Other Asthma Family history of car
[2020-08-01 15:00] VITALS: BMI 27.1
== END 2020-07-07 07:25 | disposition home or self-care (01) ==
LOC: ANHCSM 07:24
PROVIDERS: PCP Family Medicine; Visit Provider Internal Medicine Cardiovascular Disease
DX: G47.10 Hypersomnia, unspecified (principal); G47.34 Idiopathic sleep related nonobstructive alveolar hypoventilation; G47.61 Periodic limb movement disorder; R06.83 Snoring; I10 Essential (primary) hypertension; R53.83 Other fatigue; I73.9 Peripheral vascular disease, unspecified; J44.9 Chronic obstructive pulmonary disease, unspecified; E03.9 Hypothyroidism, unspecified; E78.5 Hyperlipidemia, unspecified; H26.9 Unspecified cataract; H40.9 Unspecified glaucoma; R06.02 Shortness of breath; Z86.718 Personal history of other venous thrombosis and embolism; Z79.82 Long term (current) use of aspirin
CPT/HCPCS: 95810

== ENCOUNTER 2020-09-10 01:18 | Outpatient (CLI) | payer MEDICARE, SELFPAY ==
[2020-09-10 18:06] LABS: SARS-CoV-2 RNA PCR Negative
== END 2020-09-10 01:19 | disposition home or self-care (01) ==
LOC: ANHCOVIDDT 01:19
PROVIDERS: PCP Family Medicine; Visit Provider Internal Medicine Critical Care Medicine
DX: Z20.828 Contact with and (suspected) exposure to other viral communicable diseases (principal)
CPT/HCPCS: 87635; C9803; U0003

== ENCOUNTER 2020-09-12 07:35 | Outpatient (CLI) | payer MEDICARE, SELFPAY ==
--- NOTE | 2020-10-27 13:04 | WPDSLEEPSTUD ---
Sleep Study Date of Study: 09/12/20 Ordering Provider: Zarina Gupta MD Interpreting Physician: Jory Riggins MD Sleep Study Type: Polysomnogram Height: 1.61 m Weight: 70.307 kg Body Mass Index: 27.0 Neck Circumference: 40.64 cm [place]: 1 Reason for Sleep Study prior nocturnal polysomnogram July 07, 2020 showing nocturnal hypoxemia without significant obstructive sleep apnea; returns for addition of O2 with sleep if she qualifies on this study Sleep History Stephanie Holly is a 75 year old female who had a basic sleep study 07/07/2020 showing a low AHI with nocturnal hypoxemia with 12 minutes spent below 88% saturation. Her lowest desaturation was 84% during REM. She returns to have oxygen titrated while sleeping. She has a history of several months of waking up during the night with numbness and tingling in her arms and legs, waking 5-6 times at night. She constantly snores according to her daughter. She does not awaken at night with heartburn, belching or coughing. She rarely awakens from sleep feeling short of breath. She occasionally has trouble sleeping when she has a cold. She occasionally wakes up gasping for breath at night. She really has breathing problems at night observed by others. She really sweats excessively at night or notices her heart pounding or beating irregularly at night. She rarely falls asleep during the day, never involuntarily and never while driving. She does not fall asleep during physical effort. She does not have loss of muscle tone was strong emotion, rarely has daytime difficulties due to excessive sleepiness. She really feels paralyzed on waking or falling asleep. She does not have vivid dreamlike scenes upon awakening or falling asleep. She does not have nightmares. She rarely remembers her dreams, rarely has racing thoughts, rarely feels sad, depressed, or anxious. She rarely has muscular tension. She does not notice parts of her body jerking. She rarely kicks at night, rarely has crawling and aching feelings in her legs, rarely has leg pain at night and really has morning jaw pain. She rarely grinds her teeth at night. She rarely is bothered by pain during the day, occasionally is awakened by pain at night. She rarely wakes up feeling stiff in the morning, occasionally wakes up with sore or achy muscles occasionally wakes up with pain in the neck and spine. She has fatigue and concentration difficulties. Normal bedtime is 11:00 p.m. taking 30 minutes fall asleep typically waking 4 times at night. This does very and sometime she is awake for 3-4 hours. While awake she will go to the bathroom. She also watches television if she wakes up. She wakes in the morning at 7:00 a.m.. She does not take naps. Most of the time she feels adequate in the morning. She feels better in the afternoon. Habits: Never smoked tobacco. Three cups of decaffeinated coffee. No alcohol or recreational drugs. [facility] [place] Past Medical History Medical History Anxiety Asthma Deep vein thrombophlebitis of leg Essential (primary) hypertension Hypertension Hypothyroidism (acquired) Lung nodule COMPARISON: Chest radiograph dated 11/28/[address] dated 10/12/2017 IMPRESSION: 1. No acute cardiopulmonary disease. 2. 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 Nocturnal hypoxemia sleep study Nocturnal hypoxemia with contributing factors including asthma and mild pulmonary hypertension -Lowest desaturation is 84% -12 minutes spent below 88%. Surgical History Surgical History Status post cardiac catheterization 6.8.20 codominant circulation with no evidence of coronary artery disease. preserved left ventricular systolic function Family History Family History Father Diabetes mellitus Family history of con
[2020-10-27 14:03] VITALS: BMI 27.0
== END 2020-09-12 07:36 | disposition home or self-care (01) ==
LOC: ANHCSM 07:35
PROVIDERS: PCP Family Medicine; Visit Provider Family Medicine
DX: G47.30 Sleep apnea, unspecified (principal); G47.61 Periodic limb movement disorder
CPT/HCPCS: 95810

== ENCOUNTER 2021-01-13 14:15 | Outpatient (CLI) | payer MEDICARE, SELFPAY ==
--- NOTE | ~2021-01-13 | MM_ITS ---
EXAMINATION: MM screening milena BI w ginger HISTORY: Screening mammogram, family history of breast cancer in her sister. TECHNIQUE: Craniocaudal and mediolateral oblique 3-D tomosynthesis images were obtained and synthetic 2-D images were generated. CAD analysis was submitted and interpreted. COMPARISON: 03/30/2017, 06/23/2012, 06/01/2011 BREAST PARENCHYMAL COMPOSITION: There are scattered areas of fibroglandular density. FINDINGS: There is no evidence of suspicious mass, calcification, or architectural distortion to sugg est malignancy in either breast. There has been no suspicious interval change. IMPRESSION: 1. No mammographic evidence of malignancy. 2. Recommend routine screening mammography in one year. BI-RADS Category 1: Negative Reviewed, dictated and finalized at location A.
== END 2021-01-13 14:16 | disposition home or self-care (01) ==
PROVIDERS: PCP Family Medicine; Visit Provider Family Medicine
DX: Z12.31 Encounter for screening mammogram for malignant neoplasm of breast (principal)
CPT/HCPCS: 77063; 77067

== ENCOUNTER → 2021-02-24 17:15 | Outpatient (CLI) | payer MEDICARE, SELFPAY ==
--- NOTE | ~2021-02-24 | XR_ITS ---
XR foot RT min 3V DATE: 02/24/2021 17:33 INDICATION: Lateral right ankle and foot pain TECHNIQUE: 4 views COMPARISON: None FINDINGS: Diffuse osteopenia. Plantar calcaneal enthesopathy. Mild osteoarthritic change at the first metatarsophalangeal joint. Suggestion of a small cortical fracture at the proximal lateral margin of the cuboid bone, possibly r ecent given the ill-defined apposing margins. There is suggestion of age-indeterminate small fracture at the distal lateral aspect of the calcaneus as well. No other fracture, dislocation, periosteal reaction or bone destruction. IMPRESSION: Suspected small cortical avulsion fractures of uncertain age of the distal lateral clavic le and proximal lateral cuboid Osteopenia Plantar calcaneal enthesopathy Mild osteoarthritis of first metatarsophalangeal joint Reviewed, dictated and finalized at location A. IMPRESSION: Suspected small cortical avulsion fractures of uncertain age of the distal lateral clavicle and proximal lateral cuboid Osteopenia Plantar calcaneal enthesopathy Mild osteoarthritis of first metatarsophalangeal joint
--- NOTE | ~2021-02-24 | XR_ITS ---
XR ankle RT min 3V DATE: 02/24/2021 17:32 INDICATION: Right lateral ankle and foot pain TECHNIQUE: 4 views COMPARISON: None FINDINGS: There is diffuse osteopenia. No fracture or dislocation of the ankle or disruption of the ankle mortise. No periosteal reaction or bone destruction. Plantar calcaneal enthesopathy. IMPRESSION: Osteopenia Plantar calcaneal enthesopathy Reviewed, dictated and finalized at location A.
== END ==
PROVIDERS: PCP Physician Assistant Medical; Visit Provider Physician Assistant Medical
DX: M77.31 Calcaneal spur, right foot (principal); M85.871 Other specified disorders of bone density and structure, right ankle and foot; M19.071 Primary osteoarthritis, right ankle and foot
CPT/HCPCS: 73610; 73630

== ENCOUNTER → 2021-03-13 16:32 | Outpatient (CLI) | payer MEDICARE, SELFPAY ==
--- NOTE | ~2021-03-13 | XR_ITS ---
XR foot RT min 3V DATE: 03/13/2021 17:02 INDICATION: Reported fracture TECHNIQUE: 4 views COMPARISON: 02/24/2021 right foot FINDINGS: Diffuse osteopenia. Mild plantar calcaneal enthesopathy. Small cortical avulsion fractures of undetermined age are suggested at the distal lateral clavicle an d proximal lateral cuboid bone. No other fracture is evident. No periosteal reaction or bone destruction. IMPRESSION: Osteopenia Mild plantar calcaneal enthesopathy Small cortical avulsion fractures of undetermined age of distal lateral calcaneus and proximal latera l cuboid Reviewed, dictated and finalized at location A. IMPRESSION: Osteopenia Mild plantar calcaneal enthesopathy Small cortical avulsion fractures of undetermined age of distal lateral calcane us and proximal lateral cuboid
== END ==
PROVIDERS: PCP Family Medicine; Visit Provider Physician Assistant Medical
DX: M85.871 Other specified disorders of bone density and structure, right ankle and foot (principal); M77.31 Calcaneal spur, right foot; S92.21 Fracture of cuboid bone; X58.XXXD Exposure to other specified factors, subsequent encounter
CPT/HCPCS: 73630

== ENCOUNTER → 2021-04-03 15:47 | Outpatient (CLI) | payer MEDICARE, SELFPAY ==
--- NOTE | ~2021-04-03 | XR_ITS ---
EXAMINATION: XR foot RT min 3V EXAM DATE: 04/03/2021 15:57 INDICATION: Right foot fracture, compared to prior study. TECHNIQUE: Right foot dorsoplantar, lateral and oblique projections obtained and reviewed. Compariso n is made to prior examination from 03/13/2021. FINDINGS: Right metatarsal bones unremarkable. Small ossifications adjacent to the calcaneus and cu boid laterally unchanged. Small inferior calcaneal spur. Mild polyarticular midfoot osteoarthritis. IMPRESSION: Unchanged small ossifications adjacent to right calcaneus, cuboid laterally, could be seq uela from old injury. Can't exclude subacute avulsions. Appearance unchanged. Reviewed, dictated and finalized at location B. IMPRESSION: Unchanged small ossifications adjacent to right calcaneus, cuboid l aterally, could be sequela from old injury. Can't exclude subacute avulsions. A ppearance unchanged.
== END ==
PROVIDERS: PCP Family Medicine; Visit Provider Physician Assistant Medical
DX: S92.901A Unspecified fracture of right foot, initial encounter for closed fracture (principal); X58.XXXA Exposure to other specified factors, initial encounter
CPT/HCPCS: 73630

== ENCOUNTER 2022-07-31 09:17 | Outpatient (CLI) | payer MEDICARE, SELFPAY ==
--- NOTE | ~2022-07-31 | MM_ITS ---
EXAMINATION: MM screening milena BI w ginger HISTORY: Screening mammogram TECHNIQUE: Craniocaudal and mediolateral oblique 3-D tomosynthesis images were obtained and synthetic 2-D images were generated. CAD analysis was submitted and interpreted. COMPARISON: 01/13/2021, 03/30/2017 bilateral screening mammogram examinations BREAST PARENCHYMAL COMPOSITION: There are scattered areas of fibroglandular density. FINDINGS: There is focal asymmetry in the lateral subareolar area of the right breast. Diagnostic rig ht mammogram and right breast ultrasound examination are recommended.. Otherwise there is no evidence of suspicious mass, calcification, or architectural distortion to sugg est malignancy in either breast. There has been no other suspicious interval change. IMPRESSION: 1. Lateral subareolar asymmetry of right breast 2. Diagnostic right mammogram and right breast ultrasound examination are recommended. BI-RADS Category 0: Incomplete: Needs additional imaging evaluation. Reviewed, dictated and finalized at location A. BIT DISPLAY REPRESENTATIVE IMPRESSION: 1. Lateral subareolar asymmetry of right breast 2. Diagnostic right mammogram and right breast ultrasound examination are recom mended. BI-RADS Category 0: Incomplete: Needs additional imaging evaluation.
== END 2022-07-31 09:18 | disposition home or self-care (01) ==
PROVIDERS: PCP Family Medicine; Visit Provider Family Medicine
DX: Z12.31 Encounter for screening mammogram for malignant neoplasm of breast (principal); R92.8 Other abnormal and inconclusive findings on diagnostic imaging of breast
CPT/HCPCS: 77063; 77067

== ENCOUNTER → 2022-08-17 12:40 | Outpatient (CLI) | payer MEDICARE, SELFPAY ==
--- NOTE | ~2022-08-17 | MMUS_ITS ---
EXAMINATION: MM diagnostic milena RT w ginger, US breast RT limited HISTORY: TECHNIQUE: Additional 3-D tomosynthesis images of the right breast were performed and synthetic 2-D i mages were generated. CAD analysis was submitted and interpreted. Rolled medial and rolled lateral cr aniocaudal views. High resolution upper outer quadrant and lower outer quadrant right breast ultrasou nd was performed. COMPARISON: 07/31/2022 bilateral screening mammogram 01/13/2021, 03/30/2017 bilateral screening mammogram examinations FINDINGS: MAMMOGRAPHIC FINDINGS: No suspicious reproducible mass architectural distortion is detected on these supplemental views. ULTRASOUND: 2 x 3.7 x 4.3 mm sonolucency in the subareolar area, with through transmission, consistent with simpl e cyst. IMPRESSION: 1. Benign findings; no mammographic evidence of malignancy 2. Routine annual mammographic screening is recommended. BI-RADS Category 2: Benign finding(s). Reviewed, dictated and finalized at location A. HOUSE RECORD CLERK IMPRESSION: 1. Benign findings; no mammographic evidence of malignancy 2. Routine annual mammographic screening is recommended. BI-RADS Category 2: Benign finding(s).
== END ==
PROVIDERS: PCP Family Medicine; Visit Provider Family Medicine
DX: R92.8 Other abnormal and inconclusive findings on diagnostic imaging of breast (principal)
CPT/HCPCS: 76642; 77061; 77065; G0279

== ENCOUNTER 2022-09-04 13:33 | Emergency (ER) | payer MEDICARE, SELFPAY ==
--- NOTE | ~2022-09-04 | XR_ITS ---
EXAMINATION: XR chest 2V Exam Date/Time: 09/04/2022 13:57 GEOGRAPHIC INFORMATION SYSTEMS MANAGER HISTORY: cough, short of breath Comparison: 05/28/2020, CT chest 10/12/2017. RESULT: Lines, tubes, and devices: None. Lungs and pleura: Linear and patchy subsegmental bibasilar opacities, unchanged, likely representing atelectasis or scar. Stable right upper lobe hamartoma. Cardiomediastinal silhouette: Stable. Other: No acute osseous or upper abdominal finding. IMPRESSION: Stable bibasilar atelectasis/scar. Infection is not excluded. Reviewed, dictated and finalized at location K. RAPHIC INFORMATION SYSTEMS MANAGER
[2022-09-04 13:45] VITALS: BP 126/78; PULSE 116; RESP 24; TEMP 37.3; O2SAT 95
[2022-09-04 13:47] VITALS: BP 126/78; PULSE 116; RESP 24; TEMP 37.3; O2SAT 95
--- NOTE | 2022-09-04 13:51 | ED.URI ---
HPI - URI/Sore Throat General Chief Complaint: Upper Respiratory Infection Stated Complaint: flu like symptoms Time Seen by Provider: 09/04/22 13:52 Source: patient, RN notes reviewed and old records reviewed Mode of arrival: ambulatory Limitations: no limitations History of Present Illness HPI Narrative: 77-year-old female presents to the [facility] with complaints of coughing, shortness of breath since yesterday. Has a history of asthma patient states she is concerned for influenza has not been using her albuterol inhaler Related Data Home Medications Medication Instructions Recorded Confirmed bimatoprost 0.01 % eye drops 1 drp ophthalmic (eye) HS 01/18/20 09/04/22 (Lumigan) cetirizine 10 mg capsule (Zyrtec) 10 mg PO DAILY 01/18/20 09/04/22 cholecalciferol (vitamin D3) 50 50 mcg PO DAILY 02/29/20 09/04/22 mcg (2,000 unit) tablet cyanocobalamin (vitamin B-12) 1,000 mcg PO DAILY 02/29/20 09/04/22 1,000 mcg tablet fluticasone propionate 50 2 spray intranasal DAILY 02/29/20 09/04/22 mcg/actuation nasal spray,suspension (Flonase Allergy Relief) vitamin E 268 mg (400 unit) capsule 400 unit PO DAILY 02/29/20 09/04/22 aspirin 81 mg tablet,delayed 81 mg PO DAILY 05/28/20 09/04/22 release (Adult Low Dose Aspirin) carvedilol 3.125 mg tablet 6.25 mg PO BID 07/01/20 09/04/22 levothyroxine 100 mcg tablet 100 mcg PO DAILY 06/29/22 09/04/22 Allergies Allergy/AdvReac Type Severity Reaction Status Date / Time clindamycin Allergy Unknown Hives Verified 06/16/22 14:02 denosumab Allergy Unknown loose Verified 06/16/22 14:02 teeth after one treatment mold Allergy Unknown Wheezing Verified 06/16/22 14:02 omeprazole Allergy Unknown abdominal Verified 06/16/22 14:02 cramping,diarrhea,bloating raloxifene Allergy Unknown contraindicated: Verified 06/16/22 14:02 DVT on ocp Review of Systems Review of Systems: All systems reviewed & are unremarkable except as noted in HPI and below Constitutional: Constitutional: Reports no additional constitutional complaints Eyes: Eyes: Reports no additional eye complaints ENT: Reports system reviewed and no additional complaints, except as documented Cardiovascular: Cardiovascular: Reports no additional cardiovascular complaints, Denies chest pain and Denies dyspnea Respiratory: Respiratory: Reports as per HPI, Reports chest congestion, Reports cough and Reports dyspnea Gastrointestinal: Gastrointestinal: Reports no additional gastrointestinal complaints, Denies abdominal pain, Denies nausea and Denies vomiting Musculoskeletal: Musculoskeletal: Reports no additional musculoskeletal complaints Integumentary/Breasts: Skin/Breast: Reports system reviewed and no additional complaints, except as docu Neurologic: Reports system reviewed and no additional complaints, except as documented Psychiatric: Psychiatric: Reports no additional psychiatric complaints Allergic/Immunologic: Allergic/Immunologic: Reports no additional allergic/immunologic complaints [facility] Past Medical History Medical History (Updated 09/04/22 @ 20:14 by Isabelle Rollins APRN) Anxiety Asthma Deep vein thrombophlebitis of leg Essential (primary) hypertension Hypertension Hypothyroidism (acquired) Lung nodule COMPARISON: Chest radiograph dated 11/28/[address] dated 10/12/2017 IMPRESSION: 1. No acute cardiopulmonary disease. 2. 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 preserved left ventricular systolic function Family History Family History (Reviewed 09/04/22 @ 20:11 by Isabelle Garcia
== END 2022-09-04 14:53 | disposition home or self-care (01) ==
PROVIDERS: Emergency Provider Nurse Practitioner; PCP Family Medicine
DX: J10.1 Influenza due to other identified influenza virus with other respiratory manifestations (principal); J18.9 Pneumonia, unspecified organism; J45.909 Unspecified asthma, uncomplicated; I10 Essential (primary) hypertension; Z86.718 Personal history of other venous thrombosis and embolism; E89.0 Postprocedural hypothyroidism; Z85.850 Personal history of malignant neoplasm of thyroid; Z79.82 Long term (current) use of aspirin
CPT/HCPCS: 71046; 87804; 99213; G0463

== ENCOUNTER 2023-09-12 12:26 | Emergency (ER) | payer MEDICARE, SELFPAY ==
[2023-09-12 13:21] VITALS: BP 158/92; PULSE 90; RESP 18; TEMP 36.4; O2SAT 96
--- NOTE | 2023-09-12 14:25 | ED.URI ---
HPI - URI/Sore Throat General Chief Complaint: Upper Respiratory Infection Stated Complaint: cough,runny nose Time Seen by Provider: 09/12/23 14:09 Source: patient and RN notes reviewed Mode of arrival: ambulatory Limitations: no limitations History of Present Illness HPI Narrative: Patient presents today complaining of 3 day history of cough, rhinorrhea, sinus pressure, right ear pain, sore throat, shortness of breath with exertion, itching eyes. She has tried Zyrtec, Benadryl, and Tylenol with some relief. She has tested negative for COVID at home and denies any known sick contacts. History of asthma. She has not been using her albuterol inhaler any more than normal, but states she probably should be. Related Data Home Medications Medication Instructions Recorded Confirmed bimatoprost 0.01 % eye drops 1 drp ophthalmic (eye) HS 01/18/20 09/12/23 (Lumigan) cetirizine 10 mg capsule (Zyrtec) 10 mg PO DAILY 01/18/20 09/12/23 cholecalciferol (vitamin D3) 50 50 mcg PO DAILY 02/29/20 09/12/23 mcg (2,000 unit) tablet cyanocobalamin (vitamin B-12) 1,000 mcg PO DAILY 02/29/20 09/12/23 1,000 mcg tablet fluticasone propionate 50 2 spray intranasal DAILY 02/29/20 09/12/23 mcg/actuation nasal spray,suspension (Flonase Allergy Relief) vitamin E 268 mg (400 unit) capsule 400 unit PO DAILY 02/29/20 09/12/23 aspirin 81 mg tablet,delayed 81 mg PO DAILY 05/28/20 09/12/23 release (Adult Low Dose Aspirin) carvedilol 3.125 mg tablet 6.25 mg PO BID 07/01/20 09/12/23 levothyroxine 100 mcg tablet 88 mcg PO DAILY 05/27/23 09/12/23 Allergies Allergy/AdvReac Type Severity Reaction Status Date / Time clindamycin Allergy Unknown Hives Verified 09/12/23 14:09 denosumab Allergy Unknown loose Verified 09/12/23 14:09 teeth after one treatment mold Allergy Unknown Wheezing Verified 09/12/23 14:09 omeprazole Allergy Unknown abdominal Verified 09/12/23 14:09 cramping,diarrhea,bloating raloxifene Allergy Unknown contraindicated: Verified 09/12/23 14:09 DVT on ocp Review of Systems Review of Systems: CONSTITUTIONAL: Denies body aches, fever, chills, or sweats. EYES: Denies visual changes, redness, or discharge.+ itchy eyes ENT: + right ear pain, sore throat, sinus pressure, rhinorrhea. CARDIOVASCULAR: Denies chest pain, palpitations, or edema. RESPIRATORY: + cough, shortness of breath with exertion. GASTROINTESTINAL: Denies abdominal pain, nausea, vomiting, or diarrhea. GENITOURINARY: Denies dysuria or hematuria. SKIN: Denies rash, itching, or wounds. MUSCULOSKELETAL: Denies back pain, joint pain, or myalgia. NEUROLOGIC: Denies headache, numbness, tingling, or weakness. PSYCH: Denies depression or anxiety. [facility] Past Medical History Medical History Anxiety Asthma Deep vein thrombophlebitis of leg Essential (primary) hypertension Hypertension Hypothyroidism (acquired) Lung nodule COMPARISON: Chest radiograph dated 11/28/[address] dated 10/12/2017 IMPRESSION: 1. No acute cardiopulmonary disease. 2. 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 preserved left ventricular systolic function Family History Family History Father Diabetes mellitus Family history of congestive heart failure, Onset Age: 85 Family history of kidney disease Sibling Hypertension Family history of malignant neoplasm of breast, Onset Age: 73 Family history of malignant neoplasm of breast in first
== END 2023-09-12 14:52 | disposition home or self-care (01) ==
PROVIDERS: Emergency Provider Nurse Practitioner; PCP Family Medicine
DX: J06.9 Acute upper respiratory infection, unspecified (principal); J45.901 Unspecified asthma with (acute) exacerbation; I10 Essential (primary) hypertension; E03.9 Hypothyroidism, unspecified; Z79.899 Other long term (current) drug therapy; Z79.82 Long term (current) use of aspirin
CPT/HCPCS: 99213; G0463

== ENCOUNTER → 2023-09-16 12:01 | Outpatient (CLI) | payer MEDICARE, SELFPAY ==
--- NOTE | ~2023-09-16 | XR_ITS ---
Clinical Indication: Cough PA and lateral views of the chest: Comparison: 09/04/2022 Findings: The lungs are clear, without evidence of focal consolidation or pleural effusion. Cardiome diastinal silhouette is within normal limits. Bones and soft tissues are unremarkable. Impression: Normal chest. Reviewed, dictated and finalized at location . ITY IMPROVEMENT ENGINEER Impression: Normal chest.
== END ==
PROVIDERS: PCP Physician Assistant; Visit Provider Physician Assistant
DX: R05.9 Cough, unspecified (principal)
CPT/HCPCS: 71046

== ENCOUNTER 2023-12-14 13:46 | Outpatient (CLI) | payer MEDICARE, SELFPAY ==
--- NOTE | ~2023-12-14 | MM_ITS ---
EXAMINATION: MM screening [facility] BI w ginger HISTORY: Screening TECHNIQUE: Craniocaudal and mediolateral oblique 3-D tomosynthesis images were obtained and synthetic 2-D images were generated. CAD analysis was submitted and interpreted. COMPARISON: Comparison to multiple prior studies sequentially, with oldest reviewed study dated 01/2017. BREAST PARENCHYMAL COMPOSITION: There are scattered areas of fibroglandular density. FINDINGS: There is no evidence of suspicious mass, calcification, or architectural distortion to sugg est malignancy in either breast. There has been no suspicious interval change. IMPRESSION: 1. No mammographic evidence of malignancy. 2. Recommend routine screening mammography in one year. BI-RADS Category 1: Negative Reviewed, dictated and finalized at location A.
== END 2023-12-14 13:47 | disposition home or self-care (01) ==
LOC: ANHIMG 13:50
PROVIDERS: PCP Family Medicine; Visit Provider Family Medicine
DX: Z12.31 Encounter for screening mammogram for malignant neoplasm of breast (principal)
CPT/HCPCS: 77063; 77067

== ENCOUNTER 2024-01-12 10:54 | Outpatient (CLI) | payer MEDICARE, SELFPAY | END 2024-01-12 10:55 | disposition home or self-care (01) | LOC: ANHAUDIO 10:55 | PROVIDERS: PCP Family Medicine; Visit Provider Otolaryngology | DX: H65.499 Other chronic nonsuppurative otitis media, unspecified ear (principal); H93.19 Tinnitus, unspecified ear; J32.4 Chronic pansinusitis; H90.41 Sensorineural hearing loss, unilateral, right ear, with unrestricted hearing on the contralateral side; H90.72 Mixed conductive and sensorineural hearing loss, unilateral, left ear, with unrestricted hearing on the contralateral side | CPT/HCPCS: 92557; 92567 ==

== ENCOUNTER 2024-12-15 08:28 | Outpatient (CLI) | payer MEDICARE, SELFPAY ==
--- NOTE | ~2024-12-15 | MM_ITS ---
EXAMINATION: MM screening [facility] BI w ginger HISTORY: Screening TECHNIQUE: Craniocaudal and mediolateral oblique 3-D tomosynthesis images were obtained and synthetic 2-D images were generated. CAD analysis was submitted and interpreted. COMPARISON: 12/14/2023 and dating back to 07/31/2022 BREAST PARENCHYMAL COMPOSITION: There are scattered areas of fibroglandular density. FINDINGS: Punctate and bulky calcifications are detected bilaterally, stable and benign in appearance . Punctate calcifications detected bilaterally, vascular in origin and benign in appearance. Stable parenchymal pattern without suspicious microcalcifications, architectural distortion, discrete masses or significant asymmetry. IMPRESSION: 1. No mammographic evidence of malignancy. 2. Recommend routine screening mammography in one year. BI-RADS Category 2: Benign finding(s). Reviewed, dictated and finalized at location A.
--- OUTSIDE RECORDS SUMMARY | 2024-12-15 08:31 | XMS_ITS | Clinical Summary ---
Author Organization [facility] Address [address] [place] [id number] Care Team Providers Care Infant Babysitter Name Role Phone Zarina Gupta MD Primary Care Provider [phone] Allergies No known active allergies Medications No known medications Social History Tobacco Use Types Packs/Day Years Used Date Smoking Tobacco: Never Smokeless Tobacco: Never Tobacco Cessation:Counseling Given: Not Answered Alcohol Use Standard Drinks/Week Comments Yes 0 (1 standard drink = 0.6 oz pur e alcohol) socially Comments Unknown Sex and Gender Information Value Date Recorded Sex Assigned at Not on file Legal Sex Female 3:00 PM CDT Gender Identity Not on file Sexual Orientation Not on file Last Filed Vital Signs Vital Sign Reading Time Taken Comments Blood Pressure 160/82 12/12/2023 5:21 PM CDT Pulse 82 12/12/2023 5:21 PM CDT Temperature 36.6 C (97.8 F) 12/12/2023 5:21 PM CDT Respiratory Rate 18 12/12/2023 5:21 PM CDT Oxygen Saturation 98% 12/12/2023 5:21 PM CDT Inhaled Oxygen Concentration - - Weight 69.9 kg (154 lb) 12/12/2023 3:10 PM CDT Height 160 cm (5' 3 ) 12/12/2023 3:10 PM CDT Body Mass Index 27.28 12/12/2023 3:10 PM CDT Plan of Treatment Health Maintenance Due Date Last Done Comments DTaP, Tdap and Td Vaccines ( 1 - Tdap) 1964 Annual Medicare Wellness Visit 2008 Pneumococcal Vaccine: 65+ Years (1 of 1 - PCV) 2008 Zoster Vaccines (2 of 3) 12/13/2012 10/18/2012 RSV Immunization or 60+ Years (1 - 1-dose 75+ series) 2018 COVID-19 Vaccine (3 - 2023-2 5 season) 2024 11/29/2020, 11/07/2020 Influenza Adult (#1) 2024 09/30/2020, 08/25/2019 Dexa Scan (General) Completed 09/07/2023 Meningococcal B Vaccine Aged Out No l onger eligible based on patient's age to complete this topic Meningococcal Vaccine Aged Out No tish denisha eligible based on patient's age to complete this topic RSV Immunizations Under 20 Months Aged Out No longer eligible b ased on patient's age to complete this topic Insurance [facility] Care Teams Infant Babysitter Relationship Specialty Start Date End Date Zarina Gupta MD [facility] [place]NOTE 2[place] [address] [address] PCP - General FAMILY PRACTICE 12/12/23
--- OUTSIDE RECORDS SUMMARY | 2024-12-15 08:31 | XMS_ITS | Referral Summary ---
Author Organization [facility] Address [address] [place] [address] Care Team Providers Care Office Admin Name Role Phone Zarina Gupta MD Primary Care Provider + Encounters Date Type Department Care Team Description 12/14/2024 Results Follow-Up [facility] Cardiology at [address] [place] [address] Albert Gomes MD 12/12/2024 1:00 PM CDT Ancillary Procedure [facility] Cardiology [address] [facility] [address] [place] [address] Pulmonary hypertension (HCC); LBBB (left bundle branch block); Benign hypertension from Last 3 Months Allergies Active Allergy Reactions Criticality Noted Date Comments Latex Rash Medium Medications aspirin 81 mg tablet Active LUMIGAN 0.01 % ophthalmic drops 8 Active SYMBICORT 160-4.5 mcg/actuation inhaler INHALE 2 PUFFS TWICE A DAY WITH SPACER -RINSE MOUTH AFTER EACH USE 11 8 Active calcium carbonate-vitamin D3 1,500 mg (600mg elemental) -800 unit per tablet Acti ve fluticasone (FLONASE) 50 mcg/actuation nasal spray SPRAY TWICE IN EACH NOSTRIL D UTD 6 8 Active telmisartan-amlodip ine (TWYNSTA) 40-5 mg per tablet TK 1 T PO ONCE A DAY 1 8 Active cholecalciferol (VITAMIN D-3) 2,000 unit tablet Active cetirizine (ZyrTEC) 10 mg tablet Active diphenhydrAMINE (BENADRYL) 25 mg capsule Take 1 tablet/capsu le (25 mg total) by mouth every 6 (six) hours as needed for itching Active vitamin E (AQUASOL E) 400 unit capsule Take 1 capsule (400 Units total) by mouth daily Active cyanocobalamin (Vitamin B-12) 500 mcg tabletIndications:P revention of Vitamin B12 Deficiency Take 1 tablet (500 mcg total) by mouth daily Active INV-BJ albuterol HFA (/PROMIS E-OB-18) 90 mcg/actuation, 18 g inhaler Inhale as directed Active nitroglycerin (NITROSTAT) 0.[address] 1 tablet (0.4 mg total) under the tongue every 5 (five) minutes as needed for chest pain May repeat dose q 5 min, up to 3 doses total 25 tablet 3 0 Active carvediloL (COREG) 6.25 mg tablet TAKE 1 TABLET(6.25 MG) BY MOUTH TWICE DAILY WITH MEALS 180 tablet 2 4 Active Synthroid 88 mcg tabletIndications:P ostoperative hypothyroidism TAKE 1 TABLET(88 MCG) BY MOUTH DAILY 90 tablet 5 Active Active Problems Problem Noted Date Diagnosed Date Pulmonary hypertension 08/04/2021 Hypoxemia 01/30/2021 Snoring 04/10/2020 Tiredness 04/10/2020 Hyperlipidemia LDL goal <70 02/25/2020 LBBB (left bundle branch block) 02/25/2020 Abnormal stress test 02/25/2020 Shortness of breath 02/25/2020 Exertional chest pain 02/25/2020 Age-related osteoporosis wit hout current pathological fracture 06/17/2018 Assessment & Plan (09/09/2023 12:47 PM DENTAL PROFESSIONAL): Bone density generally stable to improved over the last year. Had 6 months of risedronate. Will monitor. If decrease next year, recommend Reclast as she had leg pains with risedronate and problems with her teeth after Prolia. Assessment & Plan (07/30/2022 1:27 PM CDT): She has been on bisphosphonate in distant past. 1 dose of prolia but had tooth loosening afterward and have not rechallenged. Bone density is declining from [id number] but not considered significant. However, given high risk of fracture, recommend resuming bisphosphonate. She does not have GERD, so will start with oral bisphosphonate - risedronate 35 mg weekly which she has tolerated previously. Will reassess DEXA this year as well, with a forearm scan given her history of hyperparathyroidism. Assessment & Plan (07/22/2021 8:58 AM CDT): Bone density stable today. No indication for restarting anti-resorptive Will continue to monitor every 2 years. Assessment & Plan (06/20/2019 3:38 PM CDT): Continue on current calcium and vitamin D supplements Bone dexa scan scheduled for this afternoon, will follow up Thyroid cancer 06/17/2018 Assessment & Plan (09/09/2023 12:46 PM DENTAL PROFESSIONAL): Excellent response to therapy. Tg < 0.1 and GARCIA on US. Repeat Tg, US in one year Postoperative hypothyroidism 11/14/2016 Assessment & Plan (09/09/2023 12:45 PM DENTAL PROFESSIONAL): Goal TSH 0.5-2.0. Continue Synthroid 88 mcg daily. Assessment & Plan (07/30/2022 1:32 PM CDT): Low risk thyroid cancer, excellent response to therapy. TSH goal 0.5-2.0. Her TSH is in range. Continue 88 mcg daily. Assessment & Plan (07/22/2021 8:37 PM CDT): TSH goal 0.5-2.0. TSH is too suppressed today. Currently taking Synthroid 125 mg M-Sa which is approximately 107 mcg daily. Recommend decreasing to 100 mcg daily with recheck in 6 weeks. Assessment & Plan (07/02/2020 1:53 PM CDT): Synthroid dose was increased from 112 mcg six days per week to 125 mcg daily on 06/08/2020 by another provider based on labs done at [facility]. Patient does not have these lab results. Faxed results were not legible. - will decrease synthroid dose to 125 mcg M-Sa (6 days per week) for now - will f/u TSH results from [facility] - recheck TSH in 4 weeks Assessment & Plan (06/23/2019 11:49 AM CDT): On Synthroid 112 mcg 6 days per week with 1/2 tablet on Sundays. TSH 0.46 today. Can decrease to 112 mcg 6 days per week. Assessment & Plan (06/17/2018 2:03 PM CDT): Continue Synthroid 112 mcg daily. Patient is clinically and biochemically euthyroid. Benign hypertension 11/14/2016 Other osteoporosis without current pathological fracture 06/29/2016 Assessment & Plan (07/02/2020 1:49 PM CDT): She had an unusual change in her teeth after one dose of Prolia. We have opted not to rechallenge. Bone density is stable from 2016. She has now been off biosphosphonates for >5 years. Bone density last year showed increase in Lspine, stability in hip. Upon examination of L spine images, there did not appear to be compression fracture that would explain a spurious increase. Perhaps there is slightly more osteoarthritis. Repeat DEXA next year. Assessment & Plan (06/23/2019 11:46 AM CDT): She had an unusual change in her teeth after one dose of Prolia. We have opted not to rechallenge. Bone density is stable from 2016. She has now been off biosphosphonates for >5 years. Bone density today shows increase in Lspine, stability in hip. Upon examination of L spine images, there does not appear to be compression fracture that would explain a spurious increase. Perhaps there is slightly more osteoarthritis. Assessment & Plan (06/17/2018 2:02 PM CDT): She had an unusual change in her teeth after one dose of Prolia. We have opted not to rechallenge. Bone density is stable. She has now been off biosphosphonates for >5 years. 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 Neck US in 1 year. Assessment & Plan (07/22/2021 8:38 PM CDT): Low risk disease. No evidence of recurrence > 5 years since initial surgery. Neck US today shows GARCIA. Tg today pending. TSH goal 0.5-2.0 Assessment & Plan (07/02/2020 1:53 PM CDT): Initial pathology c/w low risk by WADE classification. Received FERRER: Yes . 30 mCi. Response to therapy: No Evidence of Disease. TSH goal: 0.5-2.0. Tg undetectable when last checked 05/2019. - Recheck Tg - Repeat Neck US. Assessment & Plan (06/23/2019 11:40 AM CDT): Initial pathology c/w low risk by WADE classification. Received FERRER: Yes . 30 mCi. Response to therapy: No Evidence of Disease. TSH goal: 0.5-2.0. Tg today undetectable. Tg in 12 months. Neck US today with GARCIA Assessment & Plan (06/17/2018 2:01 PM CDT): Initial pathology c/w low risk by WADE classification. Received FERRER: Yes . 30 mCi. Response to therapy: No Evidence of Disease. TSH goal: 0.5-2.0. Tg today undetectable. Tg in 12 months. Neck US in October with GARCIA. Neck US in 6 months. Hyperparathyroidism 08/18/2015 Social History Tobacco Use Types Packs/Day Years Used Date Smoking Tobacco: Never Smokeless Tobacco: Never Tobacco Cessation:Counseling Given: Not Answered Alcohol Use Standard Drinks/Week Comments Yes 10 (1 standard drink = 0.6 oz pu re alcohol) Comments No Sex and Gender Information Value Date Recorded Sex Assigned at Not on file Legal Sex Female 1:59 AM DENTAL PROFESSIONAL Gender Identity Not on file Sexual Orientation Not on file Last Filed Vital Signs Vital Sign Reading Time Taken Comments Blood Pressure 124/78 05/09/2024 2:27 PM CDT Pulse 80 05/09/2024 2:27 PM CDT Temperature 36.6 C (97.9 F) 09/07/2023 10:48 AM DENTAL PROFESSIONAL Respiratory Rate 15 07/25/2020 1:53 PM CDT Oxygen Saturation 93% 05/09/2024 2:27 PM CDT Inhaled Oxygen Concentration - - Weight 69.9 kg (154 lb) 05/09/2024 2:27 PM CDT Height 160 cm (5' 3 ) 05/09/2024 2:27 PM CDT Body Mass Index 27.28 05/09/2024 2:27 PM CDT Plan of Treatment Not on file Procedures Procedure Name Priority Date/Time Associated Diagnosis Comments TRANSTHORACIC ECHO (TTE) COMPLETE W DOPPLER/CF WO CONTRAST Routine 12/12/2024 1:15 PM CDT Pulmonary hypertension (HCC) LBBB (left bundle branch block) Benign hypertension DEXA AXIAL AND FOREARM BONE DENSITY SCAN Schedule Routine, Read Routine (OP Routine) 09/07/2023 10:57 AM DENTAL PROFESSIONAL Age-related osteoporosis without current pathological fracture Hyperparathyroidis m from Last 3 Months or Most Recently Relevant to Health Maintenance Results * TRANSTHORACIC ECHO (TTE) COMPLETE W DOPPLER/CF WO CONTRAST (12/12/2024 1:15 PM CDT) LV EF 50-55 % CONS SCIMAGE Anatomical Region Laterality Modality Ultrasound 12/12/2024 12:4 9 PM CDT Narrative 12/12/2024 10:02 PM CDT [facility] Cardiology [address] [facility] [address], [place] [address] [address] [facility] [address], [place] [address] P:[phone] P:[phone] Echocardiographic Report Patient Name: STEPHANIE HOLLY S : 1945 Study Date: 12/12/2024 12:49:08 PM Gender: F Tech: Location: [place] Ref Provider: ALBERT GOMES Height(Cm): 160 BSA: 1.76 Weight(Kg): 69.9 Heart Rate: 76 BP: 124 / 78 Quality: Good Order Provider: ALBERT GOMES PROCEDURES: Echocardiographic Report: Transthoracic echocardiogram with complete 2D, M-Mode, and color Doppler examination. With Strain Analysis. INDICATIONS: I27.20 Pulmonary hypertension, unspecified, I44.7 Left bundle-branch block, unspecified, and I10 Essential (primary) hypertension. MEASUREMENTS: 2D/MM Value Range Doppler Value Range EF Mod BP 57 % [ 54 - 74 ] AV Mean PG 5 mmHg EF Teich MM 56 % [ 54 - 74 ] AV Peak Armando 1.47 m/s [ 1.00 - 1.70 ] Estimated EF 50-55 % AV Peak PG 9 mmHg LVIDd 2D 4.93 cm [ 3.80 - 5.20 ] AV VTI 27.85 cm LVIDd MM 5.51 cm [ 3.80 - 5.20 ] LVOT Peak Armando 0.88 m/s [ 0.70 - 1.10 ] LVIDs 2D 3.67 cm [ 2.20 - 3.50 ] LVOT VTI 17.26 cm LVIDs MM 3.89 cm [ 2.20 - 3.50 ] MV E Peak Armnado 0.37 m/s [ 0.60 - 1.30 ] LVPWd MM 1.10 cm [ 0.60 - 0.90 ] MV A Peak Armando 1.01 m/s [ 1.00 - 1.20 ] IVSd 2D 1.03 cm [ 0.60 - 0.90 ] MV Decel Time 97 msec [ 104 - 258 ] IVSd MM 1.20 cm [ 0.60 - 0.90 ] PV Peak Armando 0.96 m/s [ 0.40 - 0.80 ] LA Dimension MM 3.89 cm [ 2.70 - 3.80 ] TR Peak Armando 2.70 m/s [ 1.00 - 2.80 ] AoR Diam MM 3.50 cm [ 2.70 - 3.70 ] TR Peak PG 29 mmHg LA Volume Index 25 cc/m2 [ 16 - 34 ] RVSP 37.00 mmHg [ 10.00 - 36.00 ] Lateral E` 0.16 m/s [ 0.10 - 0.15 ] E` 0.04 m/s E/E` 2 2D/MM Value Range Doppler Value Range - FINDINGS: Interpretation Site: Exam was interpreted at home. Left Ventricle: Mild concentric left ventricular hypertrophy. Sigmoid hypertrophy of the septum. Left ventricle cavity is upper limits of normal in size. Borderline left ventricular systolic function. Impaired diastolic relaxation Grade I. Ejection Fraction is visually estimated to be 50-55 %. Global Longitudinal Strain is -12 %. Right Ventricle: Normal right ventricular size. Normal right ventricular systolic function. Left Atrium: There is mild enlargement of left atrium. Right Atrium: The right atrium is normal in size. Atrial Septum: Normal atrial septum. Mitral Valve: Normal appearance of the mitral valve. Mild mitral valve regurgitation. Aortic Valve: No evidence of hemodynamically significant aortic stenosis by Doppler. Aortic cusps appear mildly sclerotic. Mild aortic valve regurgitation. Tricuspid Valve: Normal appearance of the tricuspid valve. Estimated peak RVSP is 37 mmHg. Trivial regurgitation in the tricuspid valve. Pulmonic Valve: Pulmonic valve not well visualized. Mild pulmonic regurgitation. Pericardium: Normal pericardium with no significant pericardial effusion. Aorta: Normal aortic root. IVC: Normal size and normal respiratory collapse consistent with normal right atrial pressure (<5 mmHg). CONCLUSIONS: Mild left ventricular hypertrophy. Sigmoid hypertrophy of the septum. Left ventricle cavity is upper limits of normal in size. Borderline left ventricular systolic function. Impaired diastolic relaxation Grade I. Ejection Fraction about 50-55 %. Global Longitudinal Strain -12 %. Normal right ventricular size and systolic function. Mild enlargement of left atrium. Normal appearance of the mitral valve. Mild mitral valve regurgitation. No evidence of hemodynamically significant aortic stenosis by Doppler. Aortic cusps appear mildly sclerotic. Mild aortic valve regurgitation. RVSP 37 mmHg. Trivial regurgitation in the tricuspid valve. Mild pulmonic regurgitation. Electronically Signed By: Steve Ceron MD, [facility] 12/12/2024 10:02:21 PM CDT Procedure Note Steve Ceron MD - 12/12/2024 [facility] Cardiology [address], [place] [address] [address] [facility] [address], [place] [address] P:[phone] P:[phone] Echocardiographic Report Patient Name: STEPHANIE HOLLY S : 1945 Study Date: 12/12/2024 12:49:08 PM Gender: F Tech: Location: [facility] Provider: ALBERT GOMES Height(Cm): 160 BSA: 1.76 Weight(Kg): 69.9 Heart Rate: 76 BP: 124 / 78 Quality: Good Order Provider: ALBERT GOMES PROCEDURES: Echocardiographic Report: Transthoracic echocardiogram with complete 2D, M-Mode, and color Dopplerexamination. With Strain Analysis. INDICATIONS: I27.20 Pulmonary hypertension, unspecified, I44.7 Left bundle-branchblock, unspecified, and I10 Essential (primary) hypertension. MEASUREMENTS: 2D/MM Value Range Doppler ValueRange EF Mod BP 57 % [ 54 - 74 ] AV Mean PG 5mmHg EF Teich MM 56 % [ 54 - 74 ] AV Peak Armando 1.47m/s [ 1.00 - 1.70 ] Estimated EF 50-55 % AV Peak PG 9mmHg LVIDd 2D 4.93 cm [ 3.80 - 5.20 ] AV VTI 27.85cm LVIDd MM 5.51 cm [ 3.80 - 5.20 ] LVOT Peak Armando 0.88m/s [ 0.70 - 1.10 ] LVIDs 2D 3.67 cm [ 2.20 - 3.50 ] LVOT VTI 17.26cm LVIDs MM 3.89 cm [ 2.20 - 3.50 ] MV E Peak Armando 0.37m/s [ 0.60 - 1.30 ] LVPWd MM 1.10 cm [ 0.60 - 0.90 ] MV A Peak Armando 1.01m/s [ 1.00 - 1.20 ] IVSd 2D 1.03 cm [ 0.60 - 0.90 ] MV Decel Time 97 msec[ 104 - 258 ] IVSd MM 1.20 cm [ 0.60 - 0.90 ] PV Peak Armando 0.96m/s [ 0.40 - 0.80 ] LA Dimension MM 3.89 cm [ 2.70 - 3.80 ] TR Peak Armando 2.70m/s [ 1.00 - 2.80 ] AoR Diam MM 3.50 cm [ 2.70 - 3.70 ] TR Peak PG 29mmHg LA Volume Index 25 cc/m2 [ 16 - 34 ] RVSP 37.00mmHg [ 10.00 - 36.00 ] Lateral E` 0.16 m/s [ 0.10 - 0.15 ] E` 0.04 m/s E/E` 2 2D/MM Value Range Doppler ValueRange - FINDINGS: Interpretation Site: Exam was interpreted at home. Left Ventricle: Mild concentric left ventricular hypertrophy. Sigmoid hypertrophy of theseptum. Left ventricle cavity is upper limits of normal in size. Borderline leftventricular systolic function. Impaired diastolic relaxation Grade I. Ejection Fraction isvisually estimated to be 50-55 %. Global Longitudinal Strain is -12 %. Right Ventricle: Normal right ventricular size. Normal right ventricular systolicfunction. Left Atrium: There is mild enlargement of left atrium. Right Atrium: The right atrium is normal in size. Atrial Septum: Normal atrial septum. Mitral Valve: Normal appearance of the mitral valve. Mild mitral valve regurgitation. Aortic Valve: No evidence of hemodynamically significant aortic stenosis by Doppler.Aortic cusps appear mildly sclerotic. Mild aortic valve regurgitation. Tricuspid Valve: Normal appearance of the tricuspid valve. Estimated peak RVSP is 37 mmHg.Trivial regurgitation in the tricuspid valve. Pulmonic Valve: Pulmonic valve not well visualized. Mild pulmonic regurgitation. Pericardium: Normal pericardium with no significant pericardial effusion. Aorta: Normal aortic root. IVC: Normal size and normal respiratory collapse consistent with normal rightatrial pressure (<5 mmHg). CONCLUSIONS: Mild left ventricular hypertrophy. Sigmoid hypertrophy of the septum. Leftventricle cavity is upper limits of normal in size. Borderline left ventricularsystolic function. Impaired diastolic relaxation Grade I. Ejection Fraction about 50-55 %.Global Longitudinal Strain -12 %. Normal right ventricular size and systolic function. Mild enlargement of left atrium. Normal appearance of the mitral valve. Mild mitral valve regurgitation. No evidence of hemodynamically significant aortic stenosis by Doppler.Aortic cusps appear mildly sclerotic. Mild aortic valve regurgitation. RVSP 37 mmHg. Trivial regurgitation in the tricuspid valve. Mild pulmonicregurgitation. Electronically Signed By: Steve Ceron MD, FACC 12/12/2024 10:02:21 PM CDT us Albert Gomes MD CV ECHO PROCEDURES Final Result * Dexa Axial and Forearm Bone Density Scan (09/07/2023 10:57 AM DENTAL PROFESSIONAL) Anatomical Region Laterality Modality Wrist, Body N/A Radiographic Anay ging Narrative 09/09/2023 8:43 AM DENTAL PROFESSIONAL Patient Name: Stephanie Holly Date of : 1945 Date of scan: 09/07/2023 Bone mineral density was performed on a HoloAdbrain Discovery Densitometer. Based on machine cross-calibration and precision studies the least significant changes of this densitometer is 0.024 g/cm2 at the spine, 0.020 g/cm2 at the total proximal femur, and 0.014g/cm2 at the forearm. HISTORY: This is a 78 y.o. postmenopausal female with a history of asthma, osteoporosis, and vitamin D deficiency. She reports that she has never smoked. She has never used smokeless tobacco. Currently on treatment with calcium, vitamin D, and thyroid hormone and previously treated with risedronate (Actonel) and denosumab (Prolia). INDICATIONS: Menopause status, vitamin D deficiency, and history of osteoporosis. FINDINGS: BONE MINERAL DENSITY OF THE LUMBAR SPINE Bone Mineral Density (BMD) of the lumbar spine was measured from L2-L3 and the average density was calculated to be 0.921 gm/cm2. This corresponds to a T-score (standard deviations from the mean of young adults) of -1.2. When compared to the previous study of 09/03/2022 there has been a 0.059 gm/cm (6.8%) increase in bone density that is considered significant. BONE MINERAL DENSITY OF THE PROXIMAL FEMUR Bone Mineral Density (BMD) of the left hip total was found to be 0.688 gm/cm2. This corresponds to a T-score standard deviations from the mean of young adults of -2.1. Femoral neck is 0.535 gm/cm2 with a T-score (standard deviations from the mean of young adults) of -2.8. When compared to the previous study of 09/03/2022 there has been no significant changes in bone density. BONE MINERAL DENSITY OF THE FOREARM Bone Mineral density (BMD) of the left proximal 1/3 of the radius measures 0.518 gm/cm2. This corresponds to a T-score (standard deviations from the mean of young adults) of -2.9. When compared to the previous study of 09/03/2022 there has been a -0.023 gm/cm (-4.3%) decrease in bone density that is considered significant. A forearm bone density study was performed in addition to the routine study because of history of hyperparathyroidism and severe degenerative disease. SUMMARY: Bone mineral density shows evidence of osteoporosis and marked increase risk of fracture. There is a significant increase noted in the spine and a significant decrease noted in the forearm since the previous exam. L1 and L4 excluded from bone mineral density analysis of the lumbar spine because of bone density being more than 1 standard deviation discrepant relative to one adjacent vertebra. Clinical correlation is recommended. ADDITIONAL COMMENTS: Postmenopausal Women and Men Over 50: Diagnostic criteria: Osteoporosis: BMD at or below -2.5 T-score; Osteopenia (low bone mass): BMD between -1.0 and -2.5 T-score. If the patient has a history of a fragility fracture, a fracture that occurred with trauma equivalent to a fall from a standing position or less, then the diagnosis is osteoporosis regardless of bone density. The history and data sections of the bone mineral density scan were prepared by Ale Forrest) ABBE who is accredited by the International Society of Clinical Densitometry. The overall patient assessment and scan interpretation were performed by Pinky Frazier M.D. who is certified by the International Society of Clinical Densitometry. [id number] Isi Walsh MD IMG DXA PROCEDURES Final Result from Last 3 Months or Most Recently Relevant to Health Maintenance Insurance [employer] MEDICARE [employer]VANTAGE [address] [place] [id number] MEDICARE FOR[facility]LY [facility] MEDICARE ADVANT[facility] Address: [facility] [address] [place] [address] Care Teams Office Admin Relationship Specialty Start Date End Date Zarina Gupta MD PCP - General 11/12/16
--- OUTSIDE RECORDS SUMMARY | 2024-12-15 08:31 | XMS_ITS | Encounter Summary ---
Author Organization [facility] Address [address] [place] [address] Care Team Providers Care Scalehouse Attendant Name Role Phone Zarina Gupta MD Primary Care Provider + Encounter Details Date Type Department Care Team (Late st Contact Info) Description 12/14/2024 Results Follow-Up [facility] Cardiology at [address] [place] [address] Torsten Lowe MD [address] [id number] Social History Tobacco Use Types Packs/Day Years Used Date Smoking Tobacco: Never Smokeless Tobacco: Never Alcohol Use Standard Drinks/Week Comments Yes 10 (1 standard drink = 0.6 oz pu re alcohol) Comments No Sex and Gender Information Value Date Recorded Sex Assigned at Not on file Legal Sex Female 1:59 AM RADIO REPAIRER Gender Identity Not on file Sexual Orientation Not on file documented as of this encounter Plan of Treatment Not on file documented as of this encounter Visit Diagnoses Not on filedocumented in this encounter Care Teams Scalehouse Attendant Relationship Specialty Start Date End Date Zarina Gupta MD PCP - General 11/12/16 documented as of this encounter
--- OUTSIDE RECORDS SUMMARY | 2024-12-15 08:31 | XMS_ITS | Clinical Summary ---
Author Organization [facility] Address [address] [place] [address] Phone Care Team Providers Care Optometrist/Practice Owner Name Role Phone Mal Gupta MD Primary Care Provider [phone] Allergies Active Allergy Reactions Criticality Noted Date Comments Latex Unknown 07/10/2020 Medications levothyroxine 125 mcg tablet Take 125 mcg by mouth daily in the morning. Active telmisartan-amL ODIPine 40-5 mg Tablet Take 1 Tablet by mouth daily. Active budesonide-form oteroL (SYMBICORT) 160-4.5 mcg/actuation HFA Aerosol Inhaler Take 2 Puffs by inhalation 2 times daily. Active fluticasone propionate (FLONASE) 50 mcg/spray Wayne, Suspension nasal inhaler Administer 2 Sprays in each nostril daily. Active donepeziL (ARICEPT) 10 mg tablet Take 10 mg by mouth daily at bedtime. Active bimatoprost (LUMIGAN) 0.01 % solution Administer 1 Drop in both eyes daily at bedtime. Active cetirizine (ZyrTEC) 10 mg tablet Take 10 mg by mouth daily. Active diphenhydrAMINE (BENADRYL) 25 mg tablet Take 25 mg by mouth every 6 hours as needed. Active calcium carbonate/vitam in D3 (CALTRATE-600 PLUS VITAMIN D3 ORAL) Take 1 Tablet by mouth daily. Active cholecalciferol , vitamin D3, 1,000 unit Take 1 Tablet by mouth daily. Active vitamin E 400 unit capsule Take 400 Units by mouth daily. Active cyanocobalamin (VITAMIN B-12) 500 mcg tablet Take 500 mcg by mouth daily. Active aspirin (ECOTRIN EC) 81 mg Tablet, Delayed Release (E.C.) Take 81 mg by mouth daily. Active ALBUTEROL SULFATE INHALATION Take 1 Puff by inhalation 1 time daily as needed. Active carvediloL (COREG) 6.25 mg tablet Take 6.25 mg by mouth 2 times daily with meals. Active Active Problems No known active problems Family History Medical History Relation Name Comments Diabetes Father Heart Disease Father High Cholesterol Father Hypertension Father Breast Cancer Sister Relation Name Status Comments Father Sister Social History Tobacco Use Types Packs/Day Years Used Date Smoking Tobacco: Never Smokeless Tobacco: Never Alcohol Use Standard Drinks/Week Comments Yes 0 (1 standard drink = 0.6 oz pur e alcohol) Comments Unknown Sex and Gender Information Value Date Recorded Sex Assigned at Not on file Legal Sex Female 2:10 PM CDT Gender Identity Not on file Sexual Orientation Not on file Last Filed Vital Signs Vital Sign Reading Time Taken Comments Blood Pressure 146/87 07/14/2020 1:47 PM CDT Pulse 69 07/14/2020 1:47 PM CDT Temperature 36.5 C (97.7 F) 07/14/2020 1:47 PM CDT Respiratory Rate - - Oxygen Saturation - - Inhaled Oxygen Concentration - - Weight 72.6 kg (160 lb) 07/14/2020 1:47 PM CDT Height 157.5 cm (5' 2 ) 07/14/2020 1:47 PM CDT Body Mass Index 29.26 07/14/2020 1:47 PM CDT Plan of Treatment Health Maintenance Due Date Last Done Comments DTAP/TDAP/TD VACCINES (1 - Tdap) 1962 PNEUMOCOCCAL VACCINE 50+ YEARS (1 of 1 - PCV) 04/18/19 93 ZOSTER VACCINE (1 of 2) 1993 OSTEOPOROSIS SCREENING 2008 RSV VACCINE (60+ or ) (1 - 1-dose 75+ series) 2018 INFLUENZA VACCINE (#1) 2024 Insurance [employer] MEDICARE SUPP AESSI Care Teams Optometrist/Practice Owner Relationship Specialty Start Date End Date Mal Gupta MD PCP - General Family Practice 06/19/20
--- OUTSIDE RECORDS SUMMARY | 2024-12-15 08:31 | XMS_ITS | Encounter Summary ---
Author Organization [facility] Address [address] [place] [address] Phone Care Team Providers Care Blood Typer Name Role Phone Zarina Gupta MD Primary Care Provider + Cornel Greer MD Unavailable [phone] Encounter Details Date Type Department Care Team (Latest Contact Info) Description 06/03/2020 Orders Only [facility] Scanning, Provider Social History Tobacco Use Types Packs/Day Years Used Date Smoking Tobacco: Never Smokeless Tobacco: Never Alcohol Use Standard Drinks/Week Comments Yes 10 (1 standard drink = 0.6 oz pu re alcohol) Comments No Sex and Gender Information Value Date Recorded Sex Assigned at Not on file Legal Sex Female 1:59 AM ADMINISTRATIVE TECH Gender Identity Not on file Sexual Orientation Not on file documented as of this encounter Plan of Treatment Not on file documented as of this encounter Procedures Procedure Name Priority Date/Time Associated Diagnosis Comments SCAN - LABS 06/03/2020 documented in this encounter Results * SCAN - LABS (06/03/2020) us Provider Scanning Final Result documented in this encounter Visit Diagnoses Not on filedocumented in this encounter Care Teams Blood Typer Relationship Specialty Start Date End Date Zarina Gupta MD PCP - General 11/12/16 Cornel Greer MD Radiation Oncologist Radiation Oncology 08/30/18 4 documented as of this encounter
--- OUTSIDE RECORDS SUMMARY | 2024-12-15 08:31 | XMS_ITS | Clinical Summary ---
Author Organization [facility] Address [address] [place] [address] Care Team Providers Care Urgent Care Nurse Practitioner Name Role Phone Zarina Gupta MD Primary Care Provider + Allergies Active Allergy Reactions Criticality Noted Date [...] (500 mcg total) by mouth daily Active [facility] albuterol HFA (/PROMIS E-OB-18) 90 mcg/actuation, 18 [...] 06/17/2018 Assessment & Plan (09/09/2023 12:47 PM PATENT ATTORNEY): Bone density generally stable to improved over [...] not rechallenged. Bone density is declining from [id number] but not considered significant. However, given high [...] 06/17/2018 Assessment & Plan (09/09/2023 12:46 PM PATENT ATTORNEY): Excellent response to therapy. Tg < 0.1 and GARCIA on US. 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 Continue Synthroid 88 mcg [...] another provider based on labs done at [facility]. Patient does not have these lab results. Faxed results were not legible. - will decrease synthroid dose to 125 mcg M-Sa (6 days per week) for now - will f/u TSH results from [facility] - recheck TSH in 4 weeks Assessment [...] Neck US in 6 months. Hyperparathyroidism 08/18/2015 Encounters Date Type Department Care Team Description 12/14/2024 Results Follow-Up [facility] Cardiology at [address] [place] [address] Albert Gomes MD 12/12/2024 1:00 PM CDT Ancillary Procedure [facility] [address] [place] [address] Pulmonary hypertension (HCC); LBBB (left bundle branch block); Benign hypertension from Last 3 Months Surgical History Surgery Date Site/Laterality Comments TONSILLECTOMY 09/26/1948 - 09/25/1949 APPENDECTOMY 09/26/1969 - 09/25/1970 TUBAL LIGATION 03/26/1979 - 04/25/1979 REPLACEMENT TOTAL KNEE 06/14/2011 Left THYROIDECTOMY, PARTIAL 12/17/2015 Left HYSTERECTOMY 01/26/2019 CATARACT EXTRACTION 04/09/2019 Left CATARACT EXTRACTION 04/30/2019 Right Medical History Medical History Date Comments Hypertension Heart murmur Hyperlipidemia Thyroid disease Cancer (HCC) thyroid Pneumonia Cataracts, bilateral Glaucoma COPD (chronic obstructive pulmonary disease) (HC C) Asthma Arthritis Peripheral artery disease Family History Medical History Relation Name Comments Hypertension Brother Family history of hypertension - (Added by TW Conv) Diabetes Father Family history of diabetes mellitus - (Added by TW Conv) Heart attack Father Heart disease Father Family history of cardiac disorder - (Added by TW Conv) Hypertension Father Family history of hypertension - (Added by TW Conv) Alzheimer's disease Mother Family h istory of Alzheimer's disease - (Added by TW Conv) Breast cancer Sister 1 Family history of malignant neoplasm of breast - (Added by TW Conv) Hypertension Sister 2 Family history of hypertension - (Added by TW Conv) Relation Name Status Comments Brother Father (Age 86) Mother (Age 79) Sister 1 Sister 2 Social History Tobacco Use Types Packs/Day Years Used Date Smoking Tobacco: Never Smokeless Tobacco: Never Tobacco Cessation:Counseling Given: Not Answered Alcohol Use Standard Drinks/Week Comments Yes 10 (1 standard drink = 0.6 oz pu re alcohol) Comments No Sex and Gender Information Value Date Recorded Sex Assigned at Not on file Legal Sex Female 1:59 AM PATENT ATTORNEY Gender Identity Not on file Sexual Orientation Not on file Obstetrics History Last Filed Vital Signs Vital Sign Reading Time Taken Comments Blood Pressure 124/78 05/09/2024 2:27 PM CDT Pulse 80 05/09/2024 2:27 PM CDT Temperature 36.6 C (97.9 F) 09/07/2023 10:48 AM PATENT ATTORNEY Respiratory Rate 15 07/25/2020 1:53 PM CDT Oxygen Saturation 93% 05/09/2024 2:27 PM CDT Inhaled Oxygen Concentration - - Weight 69.9 kg (154 lb) 05/09/2024 2:27 PM CDT Height 160 cm (5' 3 ) 05/09/2024 2:27 PM CDT Body Mass Index 27.28 05/09/2024 2:27 PM CDT Plan of Treatment Health Maintenance Due Date Last Done Comments Depression Screening 1945 DTaP/Tdap/Td Vaccine (1 - Tdap) 1954 Hepatitis B Screening 1961 Pneumococcal vaccine 65+ (1 of 1 - PCV) 1993 Well Visit 65+ 2008 Zoster Vaccine (2 of 3) 12/13/2012 10/18/2012 Fall Risk Assessment 07/25/2021 07/25/2020 Influenza Vaccine (#1) 2024 08/25/2019 Osteoporosis Screening-Bone Density Scan 09/07/2025 09/07/2023, 09/03/2022, 07/23/2021, Additional history exists Procedures Procedure Name Priority Date/Time Associated Diagnosis Comments TRANSTHORACIC ECHO (TTE) COMPLETE W DOPPLER/CF WO CONTRAST Routine 12/12/2024 1:15 PM CDT Pulmonary hypertension (HCC) LBBB (left bundle branch block) Benign hypertension DEXA AXIAL AND FOREARM BONE DENSITY SCAN Schedule Routine, Read Routine (OP Routine) 09/07/2023 10:57 AM PATENT ATTORNEY Age-related osteoporosis without current pathological fracture Hyperparathyroidis m from Last 3 Months or Most Recently Relevant to Health Maintenance Results * TRANSTHORACIC ECHO (TTE) COMPLETE W DOPPLER/CF WO CONTRAST (12/12/2024 1:15 PM CDT) LV EF 50-55 % CONS SCIMAGE Anatomical Region Laterality Modality Ultrasound 12/12/2024 12:4 9 PM CDT Narrative 12/12/2024 10:02 PM CDT [facility] [address], [place] [address] [address] [facility] [address], [place] [address] P:[phone] P:[phone] Echocardiographic Report Patient Name: STEPHANIE HOLLY S : 1945 Study Date: 12/12/2024 12:49:08 PM Gender: F Tech: Location: [place] Ref Provider: ALBERT GOMES Height(Cm): 160 BSA: [...] - 3.50 ] MV E Peak Armando 0.37 m/s [ 0.60 - 1.30 ] [...] regurgitation. Electronically Signed By: Steve Ceron MD, [facility] 12/12/2024 10:02:21 PM CDT Procedure Note Steve Ceron MD - 12/12/2024 [facility] [address], [place] [address] [address] [facility] [address], [place] [address] P:[phone] P:[phone] Echocardiographic Report Patient Name: STEPHANIE HOLLY S : 1945 Study Date: 12/12/2024 12:49:08 PM Gender: F Tech: Location: [facility] Provider: ALBERT GOMES Height(Cm): 160 BSA: [...] pulmonicregurgitation. Electronically Signed By: Steve Ceron MD, [facility] 12/12/2024 10:02:21 PM CDT us Albert Gomes MD CV ECHO PROCEDURES Final Result * Dexa Axial and Forearm Bone Density Scan (09/07/2023 10:57 AM PATENT ATTORNEY) Anatomical Region Laterality Modality Wrist, Body N/A Radiographic Anay ging Narrative 09/09/2023 8:43 AM PATENT ATTORNEY Patient Name: Stephanie Holly Date of : 1945 Date of scan: 09/07/2023 Bone mineral density was performed on a [employer] Densitometer. Based on machine cross-calibration and [...] by the International Society of Clinical Densitometry. [id number] Isi Walsh MD IMG DXA PROCEDURES Final Result from Last 3 Months or Most Recently Relevant to Health Maintenance Insurance [address] [place] [address] UHC MEDICARE ADVANTAGE [facility] Address: [address] [address] [place] [address] [address] [place] [address] MEDICARE FORMERLY [facility] [address] [id number] UHC MEDICARE ADVANTAGE Care Teams Urgent Care Nurse Practitioner Relationship Specialty Start Date End Date Zarina Gupta MD PCP - General 11/12/16
== END 2024-12-15 08:29 | disposition home or self-care (01) ==
PROVIDERS: PCP Family Medicine; Visit Provider Family Medicine
DX: Z12.31 Encounter for screening mammogram for malignant neoplasm of breast (principal)
CPT/HCPCS: 77063; 77067